=== PATIENT | female | born 1940 | race Caucasian/White ===

== ENCOUNTER 2017-02-03 15:45 | Inpatient (IN) | payer MEDICARE, OTHER ==
[~2017-02-03] VITALS: Ht 167.6 cm; Wt 69.5 kg
[~2017-02-03 15:45] MED LIST: AMLO10TA2 PO; ATEN25TA PO; BP MEDS; ESOM40CA PO
[2017-02-03] MEDS ORDERED: SODIUM CHLORIDE 0.9% 1,000ML IVBOLUS ONE ×2 (16:30→20:30)
[2017-02-03] MEDS ORDERED: SODIUM CHLORIDE FLUSH 10ML SYR IVF ONE (16:30)
[2017-02-03 16:33] LABS: ASPARTATE AMINO TRANSFERASE 17 U/L (15-37); BLOOD UREA NITROGEN 11 mg/dL (7-18)
[2017-02-03 16:40] LABS: IS PT STATUS REG ER OR PRE ER? YES
[2017-02-03] MEDS ORDERED: POTASSIUM CHLORIDE 20 MEQ TAB.ER.PRT PO ONE (17:30)
[2017-02-03] MEDS ORDERED: MAGNESIUM SULFATE 1 GM/2 ML IVPush ONE (17:30)
[2017-02-03] MEDS ORDERED: ONDANSETRON 2MG/ML, 2ML IVPush ONE (17:30)
[2017-02-03] MEDS ORDERED: POTASSIUM CHLORIDE 20 MEQ in SODIUM CHLORIDE 0.9% 250 ML IV ONE (17:30)
[2017-02-03] MEDS ORDERED: POTASSIUM CHLORIDE 20 MEQ TAB.ER.PRT ONE (17:40)
[2017-02-03] MEDS ORDERED: ONDANSETRON 2MG/ML, 2ML ONE (17:41)
[2017-02-03] MEDS ORDERED: FOLIC ACID 1 MG TABLET PO ONE (18:00)
[2017-02-03] MEDS ORDERED: MAGNESIUM SULFATE 1 GM in SODIUM CHLORIDE 0.9% 50 ML IV ONE (18:30)
[2017-02-03] MEDS ORDERED: NS + 20MEQ KCL 1,000 ML IV SCH (21:06)
[2017-02-03] MEDS: HEPARIN 5,000 UNITS/ML, 1ML SQ SCH (21:30)
[2017-02-03] MEDS ORDERED: ACETAMINOPHEN 325 MG TABLET PO PRN (21:30)
[2017-02-03] MEDS: NICOTINE 14MG/24 HR PATCH.TD24 TD SCH (21:30)
[2017-02-03] MEDS ORDERED: POLYETHYLENE GLYCOL 17 GM PACKET PO PRN (21:30)
[2017-02-03] MEDS ORDERED: BISACODYL 10 MG SUPP PR PRN (21:30)
[2017-02-03] MEDS ORDERED: ENALAPRILAT 1.25 MG/ML, 2ML IVPush PRN (21:30)
[2017-02-03 22:00] VITALS: BP 103/57
[2017-02-04] MEDS: OXYcodone IR 5MG TABLET PO PRN ×4 (00:45→16:09)
[2017-02-04 02:33] VITALS: BP 118/60
[2017-02-04 05:46] LABS: ASPARTATE AMINO TRANSFERASE 15 U/L (15-37); BLOOD UREA NITROGEN 9 mg/dL (7-18)
[2017-02-04] MEDS: SENNA/DOCUSATE TABLET PO SCH (07:57)
[2017-02-04 08:03] VITALS: BP 99/56
[2017-02-04] MEDS: HEPARIN 5,000 UNITS/ML, 1ML SQ SCH ×3 (08:09→22:23)
[2017-02-04] MEDS ORDERED: NS + 20MEQ KCL 1,000 ML IV SCH (09:00)
[2017-02-04] MEDS ORDERED: FOLIC ACID 1 MG TABLET PO SCH (09:00)
[2017-02-04] MEDS: NS + 20MEQ KCL 1,000 ML IV SCH ×2 (09:31→18:17)
[2017-02-04 14:34] VITALS: BP 110/67
[2017-02-04 18:39] VITALS: BP 141/77
[2017-02-04] MEDS: NICOTINE 14MG/24 HR PATCH.TD24 TD SCH (21:30)
[2017-02-05 02:12] VITALS: BP 127/66
[2017-02-05] MEDS ORDERED: FUROSEMIDE 20 MG/2 ML IV ONE (02:30)
[2017-02-05] MEDS: NS + 20MEQ KCL 1,000 ML IV SCH (03:59)
[2017-02-05] MEDS: HEPARIN 5,000 UNITS/ML, 1ML SQ SCH ×3 (05:24→20:12)
[2017-02-05 05:35] LABS: BLOOD UREA NITROGEN 13 mg/dL (7-18)
[2017-02-05 07:08] VITALS: BP 102/60
[2017-02-05] MEDS: SENNA/DOCUSATE TABLET PO SCH (08:38)
[2017-02-05] MEDS: OXYcodone IR 5MG TABLET PO PRN (10:20)
[2017-02-05] MEDS ORDERED: POLYETHYLENE GLYCOL 17 GM PACKET NG ONE (11:30)
[2017-02-05] MEDS: SODIUM CHLORIDE 0.9% 1,000 ML IV SCH (12:52)
[2017-02-05 13:54] VITALS: BP 112/53
[2017-02-05] MEDS: CALCIUM CARBONATE 500 MG TAB.CHEW PO SCH (17:26)
[2017-02-05 19:12] VITALS: BP 125/70
[2017-02-05] MEDS: NICOTINE 14MG/24 HR PATCH.TD24 TD SCH (20:12)
[2017-02-05] MEDS ORDERED: CALCIUM CARBONATE 500 MG TAB.CHEW PO SCH (21:00)
[2017-02-06 01:12] VITALS: BP 126/66
[2017-02-06] MEDS: OXYcodone IR 5MG TABLET PO PRN ×2 (05:21→09:13)
[2017-02-06] MEDS: HEPARIN 5,000 UNITS/ML, 1ML SQ SCH ×3 (05:21→21:32)
[2017-02-06 06:49] VITALS: BP 123/55
[2017-02-06] MEDS: SENNA/DOCUSATE TABLET PO SCH (09:03)
[2017-02-06] MEDS: CALCIUM CARBONATE 500 MG TAB.CHEW PO SCH ×2 (09:03→21:32)
[2017-02-06] MEDS: TAMSULOSIN 0.4 MG CAP.ER.24H PO SCH (09:03)
[2017-02-06] MEDS: ONDANSETRON 2MG/ML, 2ML IVPush PRN ×2 (10:55→21:32)
[2017-02-06] MEDS: SODIUM CHLORIDE 0.9% 1,000 ML IV SCH (11:30)
[2017-02-06 13:13] VITALS: BP 107/72
[2017-02-06 19:21] VITALS: BP 121/70
[2017-02-06] MEDS: NICOTINE 14MG/24 HR PATCH.TD24 TD SCH (21:35)
[2017-02-07 00:37] VITALS: BP 122/70
[2017-02-07] MEDS: SODIUM CHLORIDE 0.9% 1,000 ML IV SCH (03:45)
[2017-02-07] MEDS: HEPARIN 5,000 UNITS/ML, 1ML SQ SCH ×4 (05:30→21:30)
[2017-02-07] MEDS ORDERED: PROMETHAZINE 25 MG/ML, 1ML IM PRN (08:00)
[2017-02-07] MEDS: TAMSULOSIN 0.4 MG CAP.ER.24H PO SCH ×2 (09:00→21:30)
[2017-02-07] MEDS: SENNA/DOCUSATE TABLET PO SCH (09:00)
[2017-02-07] MEDS: CALCIUM CARBONATE 500 MG TAB.CHEW PO SCH ×2 (09:00→21:00)
[2017-02-07] MEDS: ONDANSETRON 2MG/ML, 2ML IVPush PRN ×2 (12:30→22:15)
[2017-02-07] MEDS ORDERED: LORazepam 0.5MG TABLET PO PRN (13:30)
[2017-02-07] MEDS ORDERED: LORazepam 2 MG/ML, 1ML ONE (20:48)
[2017-02-07] MEDS: NICOTINE 14MG/24 HR PATCH.TD24 TD SCH ×2 (21:15→22:15)
[2017-02-08 02:12] VITALS: BP 115/66
[2017-02-08] MEDS: HEPARIN 5,000 UNITS/ML, 1ML SQ SCH ×4 (05:30→20:44)
[2017-02-08 07:20] VITALS: BP 110/66
[2017-02-08] MEDS: OXYcodone IR 5MG TABLET PO PRN ×2 (07:57→20:44)
[2017-02-08] MEDS: SENNA/DOCUSATE TABLET PO SCH (09:00)
[2017-02-08] MEDS: CALCIUM CARBONATE 500 MG TAB.CHEW PO SCH ×2 (09:00→14:55)
[2017-02-08] MEDS: TAMSULOSIN 0.4 MG CAP.ER.24H PO SCH (09:00)
[2017-02-08] MEDS: SODIUM CHLORIDE 0.9% 1,000 ML IV SCH (11:30)
[2017-02-08 13:42] VITALS: BP 122/72
[2017-02-08 19:36] VITALS: BP 135/77
[2017-02-08] MEDS: NICOTINE 14MG/24 HR PATCH.TD24 TD SCH ×2 (20:44→21:30)
[2017-02-09 02:55] VITALS: BP 121/74
[2017-02-09 05:50] LABS: ASPARTATE AMINO TRANSFERASE 14 U/L (15-37); BLOOD UREA NITROGEN 10 mg/dL (7-18)
[2017-02-09] MEDS: HEPARIN 5,000 UNITS/ML, 1ML SQ SCH ×3 (05:59→23:21)
[2017-02-09] MEDS ORDERED: MAGNESIUM SULFATE PMX 2GM/50ML 50 ML IV ONE (07:30)
[2017-02-09] MEDS: SENNA/DOCUSATE TABLET PO SCH (07:58)
[2017-02-09] MEDS ORDERED: POTASSIUM CHLORIDE 20 MEQ TAB.ER.PRT PO ONE (08:00)
[2017-02-09 08:13] VITALS: BP 143/83
[2017-02-09] MEDS: OXYcodone IR 5MG TABLET PO PRN ×3 (08:37→20:22)
[2017-02-09] MEDS: CALCIUM CARBONATE 500 MG TAB.CHEW PO SCH ×2 (08:46→20:23)
[2017-02-09] MEDS: SODIUM CHLORIDE 0.9% 1,000 ML IV SCH (11:30)
[2017-02-09 15:10] VITALS: BP 127/78
[2017-02-09 19:44] VITALS: BP 126/76
[2017-02-09] MEDS: NICOTINE 14MG/24 HR PATCH.TD24 TD SCH (20:22)
[2017-02-10 01:17] VITALS: BP 130/78
[2017-02-10] MEDS: OXYcodone IR 5MG TABLET PO PRN ×2 (04:45→09:57)
[2017-02-10 05:59] LABS: BLOOD UREA NITROGEN 8 mg/dL (7-18)
[2017-02-10] MEDS: HEPARIN 5,000 UNITS/ML, 1ML SQ SCH ×2 (06:53→15:05)
[2017-02-10 07:12] VITALS: BP 123/69
[2017-02-10] MEDS: TAMSULOSIN 0.4 MG CAP.ER.24H PO SCH (08:40)
[2017-02-10] MEDS: SENNA/DOCUSATE TABLET PO SCH (08:40)
[2017-02-10] MEDS: CALCIUM CARBONATE 500 MG TAB.CHEW PO SCH (08:40)
[2017-02-10] MEDS ORDERED: TAMS-11 PO (11:14)
[2017-02-10] MEDS ORDERED: CALC200T24 PO (11:14)
[2017-02-10] MEDS ORDERED: OXYC5TAB3 PO (11:14)
[2017-02-10] MEDS ORDERED: HEPA5000 SQ (11:14)
[2017-02-10] MEDS ORDERED: POLY17PO5 PO (11:14)
[2017-02-10] MEDS ORDERED: LORA-445 PO (11:14)
[2017-02-10] MEDS: SODIUM CHLORIDE 0.9% 1,000 ML IV SCH (11:30)
[2017-02-10 13:22] VITALS: BP 107/66
[2017-02-10 16:05] LABS: DIFF TOTAL CELLS COUNTED 100 CELL DIFF
[2017-02-10 16:07] LABS: VERIFY COUNTS? YES
[2017-02-11 11:22] LABS: ASPARTATE AMINO TRANSFERASE 9 U/L (15-37); BLOOD UREA NITROGEN 9 mg/dL (7-18)
[2017-02-11 11:23] LABS: ASPARTATE AMINO TRANSFERASE 10 U/L (15-37); BLOOD UREA NITROGEN 9 mg/dL (7-18)
[2017-02-11 11:28] LABS: ASPARTATE AMINO TRANSFERASE 13 U/L (15-37); BLOOD UREA NITROGEN 7 mg/dL (7-18)
== END 2017-02-10 17:06 | DRG 542 ==
LOC: ED 20:03 → EDIP 20:04 → ED 20:25 → MERGE 20:25 → 4NOR 21:15
PROVIDERS: ADMIT Internal Medicine; ATTEND Internal Medicine
DX: M80.051A Age-related osteoporosis with current pathological fracture, right femur, initial encounter for fracture (principal); E43 Unspecified severe protein-calorie malnutrition; T84.030A Mechanical loosening of internal right hip prosthetic joint, initial encounter; K56.60 Unspecified intestinal obstruction; R17 Unspecified jaundice; S22.31XA Fracture of one rib, right side, initial encounter for closed fracture; S32.434A Nondisplaced fracture of anterior column [iliopubic] of right acetabulum, initial encounter for closed fracture; S32.591A Other specified fracture of right pubis, initial encounter for closed fracture; E86.1 Hypovolemia; F10.129 Alcohol abuse with intoxication, unspecified; R33.9 Retention of urine, unspecified; E83.42 Hypomagnesemia; E87.6 Hypokalemia; F17.210 Nicotine dependence, cigarettes, uncomplicated; I10 Essential (primary) hypertension; K21.9 Gastro-esophageal reflux disease without esophagitis; I95.9 Hypotension, unspecified; Z96.641 Presence of right artificial hip joint; Z90.49 Acquired absence of other specified parts of digestive tract; Z91.018 Allergy to other foods; Z90.710 Acquired absence of both cervix and uterus; Z68.24 Body mass index [BMI] 24.0-24.9, adult; W01.0XXA Fall on same level from slipping, tripping and stumbling without subsequent striking against object, initial encounter; Y83.8 Other surgical procedures as the cause of abnormal reaction of the patient, or of later complication, without mention of misadventure at the time of the procedure; Y93.89 Activity, other specified; Y92.89 Other specified places as the place of occurrence of the external cause; Y99.8 Other external cause status
CPT/HCPCS: 36415; 71010; 72192; 74000; 74250; 80048; 80053; 80307; 81001; 82040; 83735; 84484; 85025; 93005; 93306; 96361; 96365; 96367; 96375; J1644; J2405; J3475; J3480; J1940; J7030; J7050

== ENCOUNTER 2018-11-14 18:43 | Inpatient (IN) | payer MEDICARE, OTHER ==
[~2018-11-14] VITALS: Ht 167.6 cm; Wt 69.8 kg
[~2018-11-14 18:43] MED LIST changes: -AMLO10TA2 PO; +AMLO10TA8 PO; +CALC200T24 PO; +HEPA50002 SQ; +LORA-445 PO; +OXYC5TAB3 PO; +POLY17PO5 PO; +TAMS-11 PO
--- NOTE | 2018-11-14 19:00 | NUR ---
PLANT ELECTRICIAN: PT PLACED ON 3 L NASAL CANNULA.
[2018-11-14] MEDS ORDERED: ALBUTEROL/IPRATROPIUM 2.5MG/0.5MG, 3 ML ONE (19:33)
[2018-11-14] MEDS: ALBUTEROL/IPRATROPIUM 2.5MG/0.5MG, 3 ML NPPB SCH ×2 (19:42→19:44)
[2018-11-14 19:49] LABS: ALBUMIN 3.2 g/dL (3.4-5.0); ANION GAP 8 mmol/L (5-15); CALCIUM 8.4 mg/dL (8.5-10.1); CHLORIDE 106 mmol/L (98-107); CREATININE 0.67 mg/dL (0.55-1.02)
[2018-11-14 19:53] LABS: TROPONIN I 0.038 ng/mL (0.000-0.045)
[2018-11-14] MEDS ORDERED: ATEN25TA PO (20:01)
[2018-11-14 20:02] LABS: MD YES; MEAN CORPUSCULAR HEMOGLOBIN 30.8 pg (27.0-34.8); MEAN CORPUSCULAR HGB CONC 34.4 g/dL (32.4-35.8); MEAN CORPUSCULAR VOLUME 89.8 fL (80-100); MEAN PLATELET VOLUME 8.5 fL (7.4-10.4); PLATELET COUNT 206 x10^3/uL (130-400); RED BLOOD COUNT 4.63 x10^6/uL (3.82-5.3); RED CELL DISTRIBUTION WIDTH 13.4 % (9.6-15.2)
--- NOTE | 2018-11-14 20:03 | NUR ---
PT RECEIVED BREATHING TX. CONTINUES TO HAVE WHEEZES, LABORED BREATHING.NOTED TO HAVE COUGH. PT ABLE TO SPEAK FULL SENTENCES
[2018-11-14 20:06] LABS: <PLATELET ESTIMATE> ADEQUATE; <RBC MORPHOLOGY> NORMAL; BASOS#(MANUAL) 0.11 x10^3/uL (0-0.1); BASOS% (MANUAL) 1 % (0-1); LYMPH#(MANUAL) 1.24 x10^3/uL (1-3.4); LYMPHS% (MANUAL) 11 % (22-44); MONOS#(MANUAL) 1.24 x10^3/uL (0.3-2.7); MONOS% (MANUAL) 11 % (2-9); SEGS% (MANUAL) 77 % (42-75)
[2018-11-14 20:07] LABS: <PLT MORPHOLOGY> NORMAL PLT MORPH
[2018-11-14] MEDS ORDERED: AZITHROMYCIN 500 MG in SODIUM CHLORIDE 0.9% 250 ML IV ONE (21:30)
[2018-11-14] MEDS: HEPARIN 5,000 UNITS/ML, 1ML SQ SCH (22:00)
[2018-11-14] MEDS: NICOTINE 14MG/24 HR PATCH.TD24 TD SCH (22:00)
[2018-11-14] MEDS: methylPREDNISolone SOD SUCC 125 MG/2 ML IVPush SCH (22:00)
[2018-11-14] MEDS ORDERED: hydrALAzine 20 MG/ML, 1ML IVPush PRN (22:00)
[2018-11-14] MEDS ORDERED: POLYETHYLENE GLYCOL 17 GM PACKET PO PRN (22:00)
[2018-11-14] MEDS ORDERED: GUAIFENESIN/DM 200-20MG, 10ML UDC PO PRN (22:00)
[2018-11-14 23:01] LABS: TROPONIN I 0.057 ng/mL (0.000-0.045)
--- NOTE | 2018-11-14 23:13 | NUR ---
PT ASSISTED TO BS COMMODE. HOSPITAL BED ORDERED.
--- NOTE | 2018-11-15 00:02 | NUR ---
PT VSS AND UPDATED IN EMR. PT RESTING COMFORTABLY IN [facility] AT THIS TIME. CALL LIGHT IS WITHIN REACH.
[2018-11-15] MEDS ORDERED: NICOTINE 14MG/24 HR PATCH.TD24 ONE (00:09)
[2018-11-15] MEDS ORDERED: methylPREDNISolone SOD SUCC 125 MG/2 ML ONE ×2 (00:09→06:03)
[2018-11-15] MEDS ORDERED: HEPARIN 5,000 UNITS/ML, 1ML ONE ×2 (00:09→06:03)
--- NOTE | 2018-11-15 02:39 | NUR ---
RECEIVED REPORT FROM JAQUAN NEVAREZ TO ASSUME PT. CARE AT THIS TIME.
--- NOTE | 2018-11-15 03:59 | NUR ---
PT. RESTING ON GURNEY WITH NAND. EYES CLOSED. EVEN, NON-LABORED RESP VISIBLE. CONTINUOUS PULSE OX AND HEART MONITORS IN PLACE. CALL LIGHT IN REACH. ALL SAFETY MEASURES MAINTAINED.
[2018-11-15 05:53] LABS: ANION GAP 5 mmol/L (5-15); CALCIUM 8.1 mg/dL (8.5-10.1); CHLORIDE 109 mmol/L (98-107); CREATININE 0.65 mg/dL (0.55-1.02)
[2018-11-15 06:01] LABS: BASOPHILS % (AUTO) 0 % (0-1); EOSINOPHILS # (AUTO) 0.01 x10^3/uL (0-0.4); EOSINOPHILS % (AUTO) 0 % (1-7); LYMPHOCYTES # (AUTO) 0.46 x10^3/uL (1-3.4); LYMPHOCYTES % (AUTO) 5 % (22-44); MD NO; MEAN CORPUSCULAR HEMOGLOBIN 30.6 pg (27.0-34.8); MEAN CORPUSCULAR HGB CONC 33.9 g/dL (32.4-35.8); MEAN CORPUSCULAR VOLUME 90.4 fL (80-100); MEAN PLATELET VOLUME 8.2 fL (7.4-10.4); MONOCYTES # (AUTO) 0.05 x10^3/uL (0.2-0.8); MONOCYTES % (AUTO) 1 % (2-9); NEUTROPHILS # (AUTO) 8.08 x10^3/uL (1.8-6.8); NEUTROPHILS % (AUTO) 94 % (42-75); PLATELET COUNT 207 x10^3/uL (130-400); RED BLOOD COUNT 4.49 x10^6/uL (3.82-5.3); RED CELL DISTRIBUTION WIDTH 13.7 % (9.6-15.2)
[2018-11-15] MEDS ORDERED: ASPIRIN 325 MG TABLET ONE (06:03)
[2018-11-15] MEDS: methylPREDNISolone SOD SUCC 125 MG/2 ML IVPush SCH ×4 (06:14→21:19)
[2018-11-15] MEDS: HEPARIN 5,000 UNITS/ML, 1ML SQ SCH ×3 (06:14→22:00)
[2018-11-15] MEDS: ASPIRIN 325 MG TABLET PO SCH (06:15)
[2018-11-15] MEDS: ALBUTEROL/IPRATROPIUM 2.5MG/0.5MG, 3 ML NPPB SCH ×4 (07:15→18:10)
--- NOTE | 2018-11-15 07:19 | NUR ---
BS REPORT TO JAQUAN SERVIN TO ASSUME PT. CARE.
--- NOTE | 2018-11-15 07:59 | NUR ---
cardiac rhythm strip printed and placed on chart
[2018-11-15 08:59] LABS: TROPONIN I 0.018 ng/mL (0.000-0.045)
[2018-11-15] MEDS ORDERED: DOXYCYCLINE 100MG TABLET PO SCH (09:00)
[2018-11-15] MEDS ORDERED: AMLODIPINE 10 MG TAB PO SCH (09:00)
[2018-11-15 11:19] VITALS: BP 153/86
[2018-11-15] MEDS: ATENOLOL 25 MG TABLET PO SCH ×2 (11:26→15:17)
[2018-11-15 13:14] VITALS: BP 170/71
[2018-11-15] MEDS: METOPROLOL TARTRATE 25 MG TABLET PO SCH ×2 (15:00→18:00)
[2018-11-15] MEDS: AMLODIPINE 5 MG TABLET PO SCH (15:16)
[2018-11-15] MEDS: AZITHROMYCIN 500 MG in SODIUM CHLORIDE 0.9% 250 ML IV SCH ×2 (18:47→21:24)
[2018-11-15 21:17] VITALS: BP 126/77
[2018-11-15] MEDS: GUAIFENESIN ER 600 MG TABLET PO SCH (21:20)
[2018-11-15] MEDS: LISINOPRIL 20 MG TABLET PO SCH (21:20)
[2018-11-15] MEDS: ACETAMINOPHEN 325 MG TABLET PO PRN (21:35)
[2018-11-15] MEDS: NICOTINE 14MG/24 HR PATCH.TD24 TD SCH (22:00)
[2018-11-16 02:10] VITALS: BP 146/75
[2018-11-16] MEDS: methylPREDNISolone SOD SUCC 125 MG/2 ML IVPush SCH ×3 (02:29→17:51)
[2018-11-16] MEDS: ASPIRIN 325 MG TABLET PO SCH (06:27)
[2018-11-16] MEDS: HEPARIN 5,000 UNITS/ML, 1ML SQ SCH ×3 (06:28→22:10)
[2018-11-16] MEDS: METOPROLOL TARTRATE 25 MG TABLET PO SCH ×2 (06:28→17:52)
[2018-11-16] MEDS: ALBUTEROL/IPRATROPIUM 2.5MG/0.5MG, 3 ML NPPB SCH ×4 (07:40→20:41)
[2018-11-16 08:00] VITALS: BP 137/78
[2018-11-16] MEDS: AMLODIPINE 5 MG TABLET PO SCH (08:55)
[2018-11-16] MEDS: GUAIFENESIN ER 600 MG TABLET PO SCH ×2 (08:55→21:14)
[2018-11-16] MEDS: LISINOPRIL 20 MG TABLET PO SCH ×2 (08:55→21:14)
[2018-11-16 13:24] LABS: MICROSCOPIC INDICATED
[2018-11-16] MEDS: CEFTRIAXONE PMX 1GM/50ML 50 ML IV SCH (14:41)
[2018-11-16 14:42] VITALS: BP 106/66
[2018-11-16 19:18] VITALS: BP 131/73
[2018-11-16 21:13] VITALS: BP 106/64
[2018-11-16] MEDS: AZITHROMYCIN 500 MG in SODIUM CHLORIDE 0.9% 250 ML IV SCH (21:14)
[2018-11-16] MEDS: NICOTINE 14MG/24 HR PATCH.TD24 TD SCH (22:10)
[2018-11-17] MEDS: methylPREDNISolone SOD SUCC 125 MG/2 ML IVPush SCH ×5 (00:15→23:47)
[2018-11-17 01:22] VITALS: BP 100/59
[2018-11-17 06:06] VITALS: BP 122/66
[2018-11-17] MEDS: METOPROLOL TARTRATE 25 MG TABLET PO SCH ×2 (06:07→17:32)
[2018-11-17] MEDS: ASPIRIN 325 MG TABLET PO SCH (06:07)
[2018-11-17] MEDS: HEPARIN 5,000 UNITS/ML, 1ML SQ SCH ×3 (06:08→21:00)
[2018-11-17] MEDS: ALBUTEROL/IPRATROPIUM 2.5MG/0.5MG, 3 ML NPPB SCH ×5 (06:13→23:36)
[2018-11-17 07:32] VITALS: BP 124/71
[2018-11-17] MEDS: ATENOLOL 25 MG TABLET PO SCH (09:56)
[2018-11-17] MEDS: GUAIFENESIN ER 600 MG TABLET PO SCH ×2 (09:56→20:57)
[2018-11-17] MEDS: LISINOPRIL 20 MG TABLET PO SCH ×2 (09:56→20:57)
[2018-11-17] MEDS: AMLODIPINE 5 MG TABLET PO SCH (09:56)
[2018-11-17 12:27] LABS: O2 FLOW 45 L/min
[2018-11-17 12:46] VITALS: BP 128/76
[2018-11-17] MEDS: CEFTRIAXONE PMX 1GM/50ML 50 ML IV SCH (13:38)
[2018-11-17 19:43] VITALS: BP 134/72
[2018-11-17] MEDS: AZITHROMYCIN 500 MG in SODIUM CHLORIDE 0.9% 250 ML IV SCH (20:57)
[2018-11-17] MEDS: ACETAMINOPHEN 325 MG TABLET PO PRN (20:58)
[2018-11-17] MEDS: NICOTINE 14MG/24 HR PATCH.TD24 TD SCH (20:58)
[2018-11-18 02:23] VITALS: BP 103/60
[2018-11-18] MEDS: ALBUTEROL/IPRATROPIUM 2.5MG/0.5MG, 3 ML NPPB SCH ×7 (03:20→22:25)
[2018-11-18 05:27] VITALS: BP 131/77
[2018-11-18] MEDS: ASPIRIN 325 MG TABLET PO SCH (05:29)
[2018-11-18] MEDS: methylPREDNISolone SOD SUCC 125 MG/2 ML IVPush SCH ×3 (05:30→18:01)
[2018-11-18] MEDS: METOPROLOL TARTRATE 25 MG TABLET PO SCH ×2 (05:30→18:01)
[2018-11-18] MEDS: HEPARIN 5,000 UNITS/ML, 1ML SQ SCH ×3 (05:30→21:48)
[2018-11-18 07:21] VITALS: BP 148/87
[2018-11-18] MEDS: AMLODIPINE 5 MG TABLET PO SCH (08:49)
[2018-11-18] MEDS: LISINOPRIL 20 MG TABLET PO SCH ×2 (08:49→21:03)
[2018-11-18] MEDS: ATENOLOL 25 MG TABLET PO SCH (08:49)
[2018-11-18] MEDS: GUAIFENESIN ER 600 MG TABLET PO SCH ×2 (08:49→21:02)
[2018-11-18 13:52] VITALS: BP 146/82
[2018-11-18] MEDS: CEFTRIAXONE PMX 1GM/50ML 50 ML IV SCH (13:59)
[2018-11-18 19:45] VITALS: BP 142/57
[2018-11-18] MEDS ORDERED: ALBUTEROL SULFATE 2.5 MG/3 ML NPPB PRN (21:00)
[2018-11-18] MEDS: AZITHROMYCIN 500 MG in SODIUM CHLORIDE 0.9% 250 ML IV SCH (21:03)
[2018-11-18] MEDS: NICOTINE 14MG/24 HR PATCH.TD24 TD SCH (21:48)
[2018-11-19] MEDS: methylPREDNISolone SOD SUCC 125 MG/2 ML IVPush SCH ×4 (00:41→18:42)
[2018-11-19 00:44] VITALS: BP 124/70
[2018-11-19] MEDS: ALBUTEROL/IPRATROPIUM 2.5MG/0.5MG, 3 ML NPPB SCH ×6 (02:10→22:22)
[2018-11-19 05:13] LABS: BASOPHILS # (AUTO) 0.01 x10^3/uL (0-0.1); BASOPHILS % (AUTO) 0 % (0-1); EOSINOPHILS % (AUTO) 0 % (1-7); LYMPHOCYTES # (AUTO) 0.36 x10^3/uL (1-3.4); LYMPHOCYTES % (AUTO) 4 % (22-44); MD NO; MEAN CORPUSCULAR HEMOGLOBIN 30.9 pg (27.0-34.8); MEAN CORPUSCULAR HGB CONC 33.8 g/dL (32.4-35.8); MEAN CORPUSCULAR VOLUME 91.3 fL (80-100); MEAN PLATELET VOLUME 8.7 fL (7.4-10.4); MONOCYTES # (AUTO) 0.22 x10^3/uL (0.2-0.8); MONOCYTES % (AUTO) 2 % (2-9); NEUTROPHILS # (AUTO) 8.71 x10^3/uL (1.8-6.8); NEUTROPHILS % (AUTO) 94 % (42-75); PLATELET COUNT 226 x10^3/uL (130-400); RED BLOOD COUNT 4.26 x10^6/uL (3.82-5.3); RED CELL DISTRIBUTION WIDTH 13.9 % (9.6-15.2)
[2018-11-19] MEDS: HEPARIN 5,000 UNITS/ML, 1ML SQ SCH ×3 (05:19→21:18)
[2018-11-19 05:26] LABS: CHLORIDE 111 mmol/L (98-107)
[2018-11-19 05:32] LABS: ANION GAP 3 mmol/L (5-15); C-REACTIVE PROTEIN, QUANT 0.25 mg/dL (0.02-0.49); CALCIUM 8.3 mg/dL (8.5-10.1); CREATININE 0.73 mg/dL (0.55-1.02)
[2018-11-19 06:16] VITALS: BP 149/73
[2018-11-19] MEDS: METOPROLOL TARTRATE 25 MG TABLET PO SCH ×2 (06:17→18:42)
[2018-11-19] MEDS: ASPIRIN 325 MG TABLET PO SCH (06:17)
[2018-11-19 08:25] VITALS: BP 156/90
[2018-11-19] MEDS: AMLODIPINE 5 MG TABLET PO SCH (09:06)
[2018-11-19] MEDS: ATENOLOL 25 MG TABLET PO SCH (09:06)
[2018-11-19] MEDS: LISINOPRIL 20 MG TABLET PO SCH ×2 (09:06→21:17)
[2018-11-19] MEDS: GUAIFENESIN ER 600 MG TABLET PO SCH ×2 (09:06→21:17)
[2018-11-19] MEDS: CEFTRIAXONE PMX 1GM/50ML 50 ML IV SCH (13:31)
[2018-11-19 13:34] VITALS: BP 130/75
[2018-11-19] MEDS ORDERED: ONDANSETRON ODT 4 MG PO PRN (18:30)
[2018-11-19 19:21] VITALS: BP 150/81
[2018-11-19] MEDS: NICOTINE 14MG/24 HR PATCH.TD24 TD SCH (20:46)
[2018-11-19] MEDS: AZITHROMYCIN 500 MG in SODIUM CHLORIDE 0.9% 250 ML IV SCH (21:18)
[2018-11-20] MEDS: methylPREDNISolone SOD SUCC 125 MG/2 ML IVPush SCH ×4 (00:59→17:12)
[2018-11-20] MEDS: ALBUTEROL/IPRATROPIUM 2.5MG/0.5MG, 3 ML NPPB SCH ×5 (03:25→19:30)
[2018-11-20 03:30] VITALS: BP 120/71
[2018-11-20 06:33] LABS: BASOPHILS % (AUTO) 0 % (0-1); EOSINOPHILS % (AUTO) 0 % (1-7); LYMPHOCYTES % (AUTO) 4 % (22-44); MD NO; MEAN CORPUSCULAR HEMOGLOBIN 30.6 pg (27.0-34.8); MEAN CORPUSCULAR VOLUME 92.9 fL (80-100); MEAN PLATELET VOLUME 8.8 fL (7.4-10.4); MONOCYTES # (AUTO) 0.25 x10^3/uL (0.2-0.8); MONOCYTES % (AUTO) 3 % (2-9); NEUTROPHILS # (AUTO) 7.32 x10^3/uL (1.8-6.8); NEUTROPHILS % (AUTO) 93 % (42-75); PLATELET COUNT 209 x10^3/uL (130-400); RED CELL DISTRIBUTION WIDTH 13.6 % (9.6-15.2)
[2018-11-20 06:46] LABS: CHLORIDE 109 mmol/L (98-107)
[2018-11-20] MEDS: METOPROLOL TARTRATE 25 MG TABLET PO SCH ×2 (06:52→17:12)
[2018-11-20] MEDS: ASPIRIN 325 MG TABLET PO SCH (06:52)
[2018-11-20] MEDS: HEPARIN 5,000 UNITS/ML, 1ML SQ SCH ×2 (06:52→14:40)
[2018-11-20 06:54] VITALS: BP 145/63
[2018-11-20 07:05] LABS: CREATININE 0.63 mg/dL (0.55-1.02)
[2018-11-20 07:14] LABS: ANION GAP 3 mmol/L (5-15)
[2018-11-20] MEDS: AMLODIPINE 5 MG TABLET PO SCH (08:02)
[2018-11-20] MEDS: LISINOPRIL 20 MG TABLET PO SCH ×2 (08:02→20:22)
[2018-11-20] MEDS: ATENOLOL 25 MG TABLET PO SCH (08:02)
[2018-11-20] MEDS: GUAIFENESIN ER 600 MG TABLET PO SCH ×2 (08:02→20:22)
[2018-11-20 12:31] VITALS: BP 126/59
[2018-11-20] MEDS: CEFTRIAXONE PMX 1GM/50ML 50 ML IV SCH (14:40)
[2018-11-20] MEDS ORDERED: FUROSEMIDE 20 MG/2 ML IV ONE (16:00)
[2018-11-20 19:52] VITALS: BP 134/66
[2018-11-20] MEDS: NICOTINE 14MG/24 HR PATCH.TD24 TD SCH (22:00)
[2018-11-21] MEDS: methylPREDNISolone SOD SUCC 125 MG/2 ML IVPush SCH ×4 (00:32→17:19)
[2018-11-21] MEDS: HEPARIN 5,000 UNITS/ML, 1ML SQ SCH ×4 (00:32→23:46)
[2018-11-21 00:55] VITALS: BP 141/68
[2018-11-21 05:39] VITALS: BP 159/81
[2018-11-21] MEDS: METOPROLOL TARTRATE 25 MG TABLET PO SCH ×2 (05:41→17:19)
[2018-11-21] MEDS: ASPIRIN 325 MG TABLET PO SCH (05:41)
[2018-11-21 06:04] LABS: BASOPHILS # (AUTO) 0.01 x10^3/uL (0-0.1); BASOPHILS % (AUTO) 0 % (0-1); EOSINOPHILS % (AUTO) 0 % (1-7); LYMPHOCYTES # (AUTO) 0.36 x10^3/uL (1-3.4); LYMPHOCYTES % (AUTO) 4 % (22-44); MD NO; MEAN CORPUSCULAR HEMOGLOBIN 30.7 pg (27.0-34.8); MEAN CORPUSCULAR HGB CONC 33.2 g/dL (32.4-35.8); MEAN CORPUSCULAR VOLUME 92.4 fL (80-100); MEAN PLATELET VOLUME 8.4 fL (7.4-10.4); MONOCYTES # (AUTO) 0.28 x10^3/uL (0.2-0.8); MONOCYTES % (AUTO) 3 % (2-9); NEUTROPHILS # (AUTO) 8.56 x10^3/uL (1.8-6.8); NEUTROPHILS % (AUTO) 93 % (42-75); PLATELET COUNT 233 x10^3/uL (130-400); RED CELL DISTRIBUTION WIDTH 13.9 % (9.6-15.2)
[2018-11-21 06:16] LABS: CALCIUM 8.2 mg/dL (8.5-10.1); CREATININE 0.68 mg/dL (0.55-1.02)
[2018-11-21 06:29] LABS: ANION GAP 3 mmol/L (5-15); CHLORIDE 105 mmol/L (98-107)
[2018-11-21] MEDS: ALBUTEROL/IPRATROPIUM 2.5MG/0.5MG, 3 ML NPPB SCH ×4 (07:00→19:18)
[2018-11-21 07:45] VITALS: BP 152/66
[2018-11-21] MEDS: ATENOLOL 25 MG TABLET PO SCH (08:46)
[2018-11-21] MEDS: LISINOPRIL 20 MG TABLET PO SCH ×2 (08:46→21:05)
[2018-11-21] MEDS: AMLODIPINE 5 MG TABLET PO SCH (08:46)
[2018-11-21] MEDS: GUAIFENESIN ER 600 MG TABLET PO SCH ×2 (08:46→21:04)
[2018-11-21 12:08] LABS: FREE T4 (FREE THYROXINE) 0.58 ng/dL (0.76-1.46); TROPONIN I < 0.015 ng/mL (0.000-0.045)
[2018-11-21 13:48] VITALS: BP 124/66
[2018-11-21] MEDS: CEFTRIAXONE PMX 1GM/50ML 50 ML IV SCH (15:20)
[2018-11-21 18:39] VITALS: BP 146/77
[2018-11-21] MEDS: NICOTINE 14MG/24 HR PATCH.TD24 TD SCH (21:04)
[2018-11-22] MEDS: methylPREDNISolone SOD SUCC 125 MG/2 ML IVPush SCH ×4 (00:27→17:05)
[2018-11-22 01:16] VITALS: BP 150/81
[2018-11-22] MEDS: METOPROLOL TARTRATE 25 MG TABLET PO SCH ×2 (06:16→17:04)
[2018-11-22] MEDS: ASPIRIN 325 MG TABLET PO SCH (06:16)
[2018-11-22 06:19] LABS: BASOPHILS # (AUTO) 0.01 x10^3/uL (0-0.1); BASOPHILS % (AUTO) 0 % (0-1); EOSINOPHILS % (AUTO) 0 % (1-7); LYMPHOCYTES # (AUTO) 0.35 x10^3/uL (1-3.4); LYMPHOCYTES % (AUTO) 3 % (22-44); MD NO; MEAN CORPUSCULAR HEMOGLOBIN 30.5 pg (27.0-34.8); MEAN CORPUSCULAR HGB CONC 33.5 g/dL (32.4-35.8); MEAN CORPUSCULAR VOLUME 91.1 fL (80-100); MEAN PLATELET VOLUME 9.2 fL (7.4-10.4); MONOCYTES # (AUTO) 0.48 x10^3/uL (0.2-0.8); MONOCYTES % (AUTO) 5 % (2-9); NEUTROPHILS # (AUTO) 9.29 x10^3/uL (1.8-6.8); NEUTROPHILS % (AUTO) 92 % (42-75); PLATELET COUNT 235 x10^3/uL (130-400); RED BLOOD COUNT 4.33 x10^6/uL (3.82-5.3); RED CELL DISTRIBUTION WIDTH 13.5 % (9.6-15.2)
[2018-11-22 06:30] LABS: CALCIUM 7.9 mg/dL (8.5-10.1); CHLORIDE 104 mmol/L (98-107)
[2018-11-22 06:42] LABS: ANION GAP 3 mmol/L (5-15)
[2018-11-22] MEDS: ALBUTEROL/IPRATROPIUM 2.5MG/0.5MG, 3 ML NPPB SCH ×4 (07:45→20:00)
[2018-11-22] MEDS: HEPARIN 5,000 UNITS/ML, 1ML SQ SCH ×2 (08:00→15:25)
[2018-11-22 08:20] VITALS: BP 183/80
[2018-11-22] MEDS: GUAIFENESIN ER 600 MG TABLET PO SCH ×2 (08:29→20:41)
[2018-11-22] MEDS: AMLODIPINE 5 MG TABLET PO SCH (08:30)
[2018-11-22] MEDS: LISINOPRIL 20 MG TABLET PO SCH ×2 (08:30→20:41)
[2018-11-22] MEDS: ATENOLOL 25 MG TABLET PO SCH (08:30)
[2018-11-22 10:31] LABS: TROPONIN I < 0.015 ng/mL (0.000-0.045)
[2018-11-22] MEDS: CEFTRIAXONE PMX 1GM/50ML 50 ML IV SCH (13:47)
[2018-11-22 14:45] VITALS: BP 143/80
[2018-11-22 20:24] VITALS: BP 134/71
[2018-11-22] MEDS: NICOTINE 14MG/24 HR PATCH.TD24 TD SCH (20:41)
[2018-11-23] MEDS: methylPREDNISolone SOD SUCC 125 MG/2 ML IVPush SCH ×3 (00:50→12:22)
[2018-11-23 02:07] VITALS: BP 154/73
[2018-11-23] MEDS: ASPIRIN 325 MG TABLET PO SCH (06:22)
[2018-11-23] MEDS: METOPROLOL TARTRATE 25 MG TABLET PO SCH (06:23)
[2018-11-23 06:26] LABS: BASOPHILS # (AUTO) 0.02 x10^3/uL (0-0.1); BASOPHILS % (AUTO) 0 % (0-1); EOSINOPHILS % (AUTO) 0 % (1-7); LYMPHOCYTES # (AUTO) 0.29 x10^3/uL (1-3.4); LYMPHOCYTES % (AUTO) 3 % (22-44); MD NO; MEAN CORPUSCULAR HEMOGLOBIN 30.6 pg (27.0-34.8); MEAN CORPUSCULAR HGB CONC 33.6 g/dL (32.4-35.8); MEAN PLATELET VOLUME 8.4 fL (7.4-10.4); MONOCYTES # (AUTO) 0.22 x10^3/uL (0.2-0.8); MONOCYTES % (AUTO) 2 % (2-9); NEUTROPHILS # (AUTO) 8.71 x10^3/uL (1.8-6.8); NEUTROPHILS % (AUTO) 94 % (42-75); PLATELET COUNT 236 x10^3/uL (130-400); RED BLOOD COUNT 4.38 x10^6/uL (3.82-5.3); RED CELL DISTRIBUTION WIDTH 13.4 % (9.6-15.2)
[2018-11-23 06:38] LABS: CALCIUM 7.9 mg/dL (8.5-10.1)
[2018-11-23 06:44] LABS: CREATININE 0.62 mg/dL (0.55-1.02)
[2018-11-23] MEDS: ALBUTEROL/IPRATROPIUM 2.5MG/0.5MG, 3 ML NPPB SCH ×3 (06:53→14:18)
[2018-11-23 07:03] LABS: ANION GAP 6 mmol/L (5-15); CHLORIDE 102 mmol/L (98-107)
[2018-11-23 07:52] VITALS: BP 166/88
[2018-11-23] MEDS: HEPARIN 5,000 UNITS/ML, 1ML SQ SCH ×2 (09:18)
[2018-11-23] MEDS: AMLODIPINE 5 MG TABLET PO SCH (09:18)
[2018-11-23] MEDS: GUAIFENESIN ER 600 MG TABLET PO SCH (09:19)
[2018-11-23] MEDS: LISINOPRIL 20 MG TABLET PO SCH (09:19)
[2018-11-23] MEDS: ATENOLOL 25 MG TABLET PO SCH (09:19)
[2018-11-23] MEDS ORDERED: POLY17PO5 PO (13:24)
[2018-11-23] MEDS ORDERED: ONDA4TAB13 PO (13:24)
[2018-11-23] MEDS ORDERED: LISI-170 PO (13:24)
[2018-11-23] MEDS ORDERED: ALBU2.5V NPPB (13:24)
[2018-11-23] MEDS ORDERED: HEPA50002 SQ (13:24)
[2018-11-23] MEDS ORDERED: ALPR0.254 PO (13:24)
[2018-11-23] MEDS ORDERED: GUAI5SYR PO (13:24)
[2018-11-23] MEDS ORDERED: ASPI325T17 PO (13:24)
[2018-11-23] MEDS ORDERED: GUAI600T31 PO (13:24)
[2018-11-23] MEDS ORDERED: METH125V16 IVPush (13:24)
[2018-11-23] MEDS ORDERED: LEVO25TA2 PO (13:24)
[2018-11-23] MEDS ORDERED: METO25TA35 PO (13:24)
[2018-11-23] MEDS ORDERED: IPRA3AMP30 NPPB (13:24)
[2018-11-23] MEDS ORDERED: NICO-486 TD (13:24)
[2018-11-23] MEDS ORDERED: ACET325T14 PO (13:24)
[2018-11-23 13:35] VITALS: BP 160/84
[2018-11-23] MEDS: CEFTRIAXONE PMX 1GM/50ML 50 ML IV SCH (14:09)
== END 2018-11-23 16:03 | DRG 189 ==
LOC: ED 20:47 → EDIP 21:16 → 4EST 11-15 12:51
PROVIDERS: ADMIT Family Medicine; ATTEND Family Medicine
PROC: 5A09357 Assistance with Respiratory Ventilation, Less than 24 Consecutive Hours, Continuous Positive Airway Pressure (ICD-10-PCS; 2018-11-21)
PROC: 5A09357 Assistance with Respiratory Ventilation, Less than 24 Consecutive Hours, Continuous Positive Airway Pressure (ICD-10-PCS; principal; 2018-11-22)
PROC: 5A09357 Assistance with Respiratory Ventilation, Less than 24 Consecutive Hours, Continuous Positive Airway Pressure (ICD-10-PCS; 2018-11-23)
DX: J96.21 Acute and chronic respiratory failure with hypoxia (principal); J44.1 Chronic obstructive pulmonary disease with (acute) exacerbation; I24.8 Other forms of acute ischemic heart disease; E87.2 Acidosis; F41.9 Anxiety disorder, unspecified; E03.9 Hypothyroidism, unspecified; I11.9 Hypertensive heart disease without heart failure; F17.210 Nicotine dependence, cigarettes, uncomplicated; Z96.641 Presence of right artificial hip joint; Z90.710 Acquired absence of both cervix and uterus; Z91.018 Allergy to other foods; Z79.82 Long term (current) use of aspirin; Z79.899 Other long term (current) drug therapy
CPT/HCPCS: 0399T; 36415; 36600; 71045; 80048; 81001; 82040; 82803; 82962; 83880; 84439; 84443; 84484; 85025; 86140; 87040; 93005; 93306; 93308; 94640; 99285; G0378; J0456; J0696; J1644; J7620; Q0162; J1940; J2930; J7050

== ENCOUNTER 2019-03-02 10:36 | Emergency (ER) | payer MEDICARE, OTHER ==
[~2019-03-02] VITALS: Ht 162.6 cm; Wt 71.6 kg
[~2019-03-02 10:36] MED LIST changes: +ACET325T14 PO; +ALBU2.5V NPPB; +ALPR0.254 PO; +ASPI325T17 PO; +GUAI5SYR PO; +GUAI600T31 PO; +IPRA3AMP30 NPPB; +LEVO25TA2 PO; +LISI-170 PO; +METH125V16 IVPush; +METO25TA35 PO; +NICO-486 TD; +ONDA4TAB13 PO
--- NOTE | 2019-03-02 10:58 | NUR ---
PT HAS COMPLAINTS OF MID BACK PAIN. PT STATES SHE "HAS BEEN IN THREE TIMES THIS WEEKS" PT STATES SHE "FELL OF A HORSE 20 YEARS AGO". VS STABLE. PRESENT
[2019-03-02] MEDS ORDERED: KETOROLAC 30 MG/1 ML ONE (11:39)
[2019-03-02] MEDS ORDERED: KETOROLAC 30 MG/1 ML IM ONE (12:00)
--- NOTE | 2019-03-02 12:11 | NUR ---
AT DOOR REQUESTING D/C PAPERWORK, EXPLAINED MD HAS YET TO COMPLETE. LOOKED AT WATCH AND SAID HE HAD TO GO, ROLLED EYES AND BACK TO ROOM. OFFERED APOLOGY, SPOUSE APPEARS VERY ANGRY AT THIS RN.
--- NOTE | 2019-03-02 12:36 | NUR ---
given dc instrucftion pt up in w/c dc home
[2019-03-02 12:37] VITALS: BP 148/70
[2019-03-16] MEDS ORDERED: METH750T87 PO (15:59)
[2019-03-16] MEDS ORDERED: HYDR-3237 PO (15:59)
== END 2019-03-02 12:39 | disposition home or self-care (01) ==
LOC: ED 11:50
DX: M48.55XA Collapsed vertebra, not elsewhere classified, thoracolumbar region, initial encounter for fracture (principal); J44.9 Chronic obstructive pulmonary disease, unspecified; I10 Essential (primary) hypertension; Z91.018 Allergy to other foods
CPT/HCPCS: 96372; 99283; J1885

== ENCOUNTER 2019-03-14 17:36 | Emergency (ER) | payer MEDICARE, OTHER ==
[~2019-03-14] VITALS: Ht 167.6 cm; Wt 68.0 kg
--- NOTE | 2019-03-14 18:00 | NUR ---
pt arrives to ed with c/o lower back pain and severe distress. pt reports the back pain is unbareable and she cannot moved. pts vss and nadn. pt connected to monitors and call light in reach. pt takes narcotics reguarly for pain control. pt requesting valium at this time prior to provider seeing her.
[2019-03-14] MEDS ORDERED: KETOROLAC 30 MG/1 ML IM ONE (18:30)
[2019-03-14] MEDS ORDERED: DIAZEPAM 5 MG TABLET PO ONE (18:30)
[2019-03-14] MEDS ORDERED: KETOROLAC 30 MG/1 ML ONE (18:33)
[2019-03-14] MEDS ORDERED: DIAZEPAM 5 MG TABLET ONE (18:33)
[2019-03-14 18:51] LABS: BASOPHILS # (AUTO) 0.07 x10^3/uL (0-0.1); BASOPHILS % (AUTO) 1 % (0-1); EOSINOPHILS # (AUTO) 0.27 x10^3/uL (0-0.4); EOSINOPHILS % (AUTO) 3 % (1-7); LYMPHOCYTES # (AUTO) 1.22 x10^3/uL (1-3.4); LYMPHOCYTES % (AUTO) 15 % (22-44); MD NO; MEAN CORPUSCULAR HGB CONC 32.6 g/dL (32.4-35.8); MEAN CORPUSCULAR VOLUME 91.9 fL (80-100); MONOCYTES # (AUTO) 0.69 x10^3/uL (0.2-0.8); MONOCYTES % (AUTO) 8 % (2-9); NEUTROPHILS # (AUTO) 5.95 x10^3/uL (1.8-6.8); NEUTROPHILS % (AUTO) 73 % (42-75); PLATELET COUNT 347 x10^3/uL (130-400); RED BLOOD COUNT 3.78 x10^6/uL (3.82-5.3); RED CELL DISTRIBUTION WIDTH 14.2 % (9.6-15.2)
--- NOTE | 2019-03-14 18:55 | NUR ---
PATIENT REFUSING TO COOPERATE WITH ORTHOSTATIC VITALS STATING "I AM IN TOO MUCH PAIN TO DEAL WITH THIS".
[2019-03-14 19:03] LABS: ANION GAP 9 mmol/L (5-15); CALCIUM 8.2 mg/dL (8.5-10.1); CHLORIDE 102 mmol/L (98-107)
[2019-03-14 19:04] LABS: ALANINE AMINOTRANSFERASE 12 U/L (12-78); ALBUMIN 2.8 g/dL (3.4-5.0)
[2019-03-14 19:06] LABS: ALKALINE PHOSPHATASE 98 U/L (45-117); BILIRUBIN,TOTAL 0.1 mg/dL (0.2-1.0); TOTAL PROTEIN 6.1 g/dL (6.4-8.2)
--- NOTE | 2019-03-14 19:21 | NUR ---
Plan of care discussed with patient and her , verbalize understanding. Labs pending, waiting for CT scan.
[2019-03-14 19:42] LABS: TROPONIN I < 0.015 ng/mL (0.000-0.045)
--- NOTE | 2019-03-14 20:45 | NUR ---
pt at cta at this time.
[2019-03-14 20:46] VITALS: BP 121/82
[2019-03-14] MEDS ORDERED: OMNIPAQUE 350 MG/ML, 100ML BOTTLE ONE (21:03)
[2019-03-14] MEDS ORDERED: HYDROcodone/APAP 5/325 TABLET ONE (22:13)
--- NOTE | 2019-03-14 22:17 | NUR ---
Patient/Caregiver given discharge instructions and they have confirmed that they understand the instructions. Patient ambulatory with steady gait.
[2019-03-14] MEDS ORDERED: HYDROcodone/APAP 5/325 TABLET PO ONE (22:30)
[2019-03-16] MEDS ORDERED: METH750T87 PO (15:59)
[2019-03-16] MEDS ORDERED: HYDR-3237 PO (15:59)
== END 2019-03-14 22:18 | disposition home or self-care (01) ==
LOC: ED 18:00
DX: S29.012A Strain of muscle and tendon of back wall of thorax, initial encounter (principal); I70.90 Unspecified atherosclerosis; M51.34 Other intervertebral disc degeneration, thoracic region; X58.XXXA Exposure to other specified factors, initial encounter; Y93.89 Activity, other specified; Y92.89 Other specified places as the place of occurrence of the external cause; Y99.8 Other external cause status
CPT/HCPCS: 36415; 71275; 74175; 80053; 83690; 84484; 85025; 93005; 96372; 99284; J1885; Q9967

== ENCOUNTER 2019-03-16 14:03 | Inpatient (IN) | payer MEDICARE, OTHER ==
[~2019-03-16] VITALS: Ht 167.6 cm; Wt 76.0 kg
[2019-03-23 16:30] VITALS: BP 135/71
== END 2019-03-23 16:56 | disposition left against medical advice (07) | DRG 542 ==
LOC: ED 15:44 → EDIP 15:49 → 5SO 17:04
PROVIDERS: ADMIT Hospitalist; ATTEND Hospitalist
PROC: 0D9670Z Drainage of Stomach with Drainage Device, Via Natural or Artificial Opening (ICD-10-PCS; principal; 2019-03-20)
DX: M48.55XA Collapsed vertebra, not elsewhere classified, thoracolumbar region, initial encounter for fracture (principal); J96.21 Acute and chronic respiratory failure with hypoxia; I26.99 Other pulmonary embolism without acute cor pulmonale; J18.1 Lobar pneumonia, unspecified organism; E44.0 Moderate protein-calorie malnutrition; J44.0 Chronic obstructive pulmonary disease with (acute) lower respiratory infection; K56.52 Intestinal adhesions [bands] with complete obstruction; I10 Essential (primary) hypertension; R62.7 Adult failure to thrive; Z53.21 Procedure and treatment not carried out due to patient leaving prior to being seen by health care provider; F17.210 Nicotine dependence, cigarettes, uncomplicated; D63.8 Anemia in other chronic diseases classified elsewhere; E55.9 Vitamin D deficiency, unspecified; E66.3 Overweight; Z68.27 Body mass index [BMI] 27.0-27.9, adult; Z86.711 Personal history of pulmonary embolism; Z99.81 Dependence on supplemental oxygen; Z91.018 Allergy to other foods; Z90.49 Acquired absence of other specified parts of digestive tract
CPT/HCPCS: 36415; 71045; 71275; 72131; 72146; 74018; 74021; 74175; 74177; 76000; 76705; 80048; 80053; 80061; 81001; 82040; 82306; 82607; 83036; 83605; 83690; 83735; 84439; 84443; 84484; 85025; 85520; 85610; 93005; 93306; 93970; 96372; 96374; 96375; 99156; 99157; 99284; G0378; J0696; J1644; J1650; J1885; J2250; J2405; J3010; Q9967; 92523-GN; C9113; J1940; J2270; J2310; J7030; J7512

== ENCOUNTER 2019-11-13 11:38 | Emergency (ER) | payer MEDICARE, OTHER ==
[~2019-11-13] VITALS: Ht 167.6 cm; Wt 70.0 kg
[~2019-11-13 11:38] MED LIST changes: +APIX5TAB PO; +DOXY100T PO; +ERGO500017 PO; +HYDR-3237 PO; +METH750T87 PO
[2019-11-13] MEDS ORDERED: SODIUM CHLORIDE 0.9% 1,000 ML IV ONE (12:06)
--- NOTE | 2019-11-13 12:06 | NUR ---
PT BIBA FOR C/O EPIGASTRIC PAIN X 7 DAYS, SOB X 2 DAYS. PT DENIES N/V/D. DENIES TARRY/BLOODY STOOL. +ETOH DAILY, +TOBACCO DAILY. PT DENIES COUGH. PT ATTACHED TO ALL MONITORS, RAISA NIETO AT BEDSIDE FOR INITIAL ASSESSMENT.
[2019-11-13] MEDS ORDERED: ONDANSETRON 2MG/ML, 2ML ONE (12:19)
[2019-11-13] MEDS ORDERED: MORPHINE SULFATE 4 MG/ML, 1ML ONE (12:19)
[2019-11-13 12:26] LABS: BASOPHILS # (AUTO) 0.02 x10^3/uL (0-0.1); BASOPHILS % (AUTO) 1 % (0-1); EOSINOPHILS # (AUTO) 0.08 x10^3/uL (0-0.4); EOSINOPHILS % (AUTO) 2 % (1-7); LYMPHOCYTES # (AUTO) 0.72 x10^3/uL (1-3.4); LYMPHOCYTES % (AUTO) 18 % (22-44); MD NO; MEAN CORPUSCULAR HEMOGLOBIN 29.8 pg (27.0-34.8); MEAN CORPUSCULAR VOLUME 90.3 fL (80-100); MEAN PLATELET VOLUME 7.8 fL (7.4-10.4); MONOCYTES # (AUTO) 0.72 x10^3/uL (0.2-0.8); MONOCYTES % (AUTO) 18 % (2-9); NEUTROPHILS # (AUTO) 2.54 x10^3/uL (1.8-6.8); NEUTROPHILS % (AUTO) 62 % (42-75); PLATELET COUNT 183 x10^3/uL (130-400); RED BLOOD COUNT 4.48 x10^6/uL (3.82-5.3); RED CELL DISTRIBUTION WIDTH 13.8 % (9.6-15.2)
[2019-11-13] MEDS ORDERED: ONDANSETRON 2MG/ML, 2ML IVPush ONE (12:30)
[2019-11-13] MEDS ORDERED: MORPHINE SULFATE 4 MG/ML, 1ML IVPush PRN (12:30)
[2019-11-13] MEDS ORDERED: SODIUM CHLORIDE FLUSH 10ML SYR IVF ONE (12:30)
[2019-11-13 12:37] LABS: ALANINE AMINOTRANSFERASE 18 U/L (12-78); ALBUMIN 3.4 g/dL (3.4-5.0); ANION GAP 6 mmol/L (5-15); CALCIUM 8.2 mg/dL (8.5-10.1); CHLORIDE 102 mmol/L (98-107); CREATININE 0.69 mg/dL (0.55-1.02)
[2019-11-13 12:39] LABS: ALKALINE PHOSPHATASE 79 U/L (45-117); BILIRUBIN,TOTAL 0.3 mg/dL (0.2-1.0)
--- NOTE | 2019-11-13 13:11 | NUR ---
MD Bowles notified pt has expiratory wheezes, hx copd. ordered breathing tx. RT paged to provide.
[2019-11-13] MEDS ORDERED: ALBUTEROL SULFATE 2.5 MG/3 ML ONE (13:21)
[2019-11-13] MEDS ORDERED: MAALOX/HYOSCYAMINE/LIDOCAINE 45 ML BTL ONE ×2 (13:24→13:46)
--- NOTE | 2019-11-13 13:26 | NUR ---
US IN PROGRESS, PT TOLERATING WELL. PT DENIES PAIN. PT TO HAVE GI COCKTAIL AND BREATHING TX AFTER COMPLETION.
[2019-11-13] MEDS ORDERED: ALBUTEROL SULFATE 2.5 MG/3 ML NPPB ONE (13:30)
[2019-11-13] MEDS ORDERED: MAALOX/HYOSCYAMINE/LIDOCAINE 45 ML BTL PO ONE (13:30)
--- NOTE | 2019-11-13 13:45 | NUR ---
REPORT GIVEN TO JAQUAN MASON.
[2019-11-13 13:55] VITALS: BP 121/55
--- NOTE | 2019-11-13 14:00 | NUR ---
PT MEDICATED PER EMAR. 1L NS STARTED. VS STABLE. PT IS RESTING ON GURNEY W/ CALL LIGHT IN REACH AND FAMILY AT BEDSIDE.
== END 2019-11-13 14:41 | disposition home or self-care (01) ==
LOC: ED 14:35
DX: K29.70 Gastritis, unspecified, without bleeding (principal); R06.02 Shortness of breath
CPT/HCPCS: 36415; 76700; 80053; 83690; 85025; 93005; 94640; 96361; 96374; 96375; 99285; J2270; J2405; J7030; J7613

== ENCOUNTER 2019-11-19 15:13 | Inpatient (IN) | payer MEDICARE, OTHER ==
[~2019-11-19] VITALS: Ht 167.6 cm; Wt 70.2 kg
[2019-11-19] MEDS ORDERED: ALBUTEROL/IPRATROPIUM 2.5MG/0.5MG, 3 ML ONE (15:47)
[2019-11-19] MEDS: ALBUTEROL/IPRATROPIUM 2.5MG/0.5MG, 3 ML NPPB SCH (15:52)
[2019-11-19] MEDS ORDERED: SODIUM CHLORIDE FLUSH 10ML SYR IVF ONE (16:00)
[2019-11-19 16:23] LABS: ALANINE AMINOTRANSFERASE 19 U/L (12-78); ALBUMIN 3.1 g/dL (3.4-5.0); ANION GAP 3 mmol/L (5-15); CALCIUM 8.5 mg/dL (8.5-10.1); CHLORIDE 104 mmol/L (98-107); CREATININE 0.74 mg/dL (0.55-1.02)
[2019-11-19 16:27] LABS: ALKALINE PHOSPHATASE 85 U/L (45-117); BILIRUBIN,TOTAL 0.4 mg/dL (0.2-1.0); TOTAL PROTEIN 7.1 g/dL (6.4-8.2); TROPONIN I < 0.015 ng/mL (0.000-0.045)
[2019-11-19 16:29] LABS: BASOPHILS # (AUTO) 0.02 x10^3/uL (0-0.1); BASOPHILS % (AUTO) 0 % (0-1); EOSINOPHILS # (AUTO) 0.04 x10^3/uL (0-0.4); EOSINOPHILS % (AUTO) 0 % (1-7); LYMPHOCYTES # (AUTO) 0.99 x10^3/uL (1-3.4); LYMPHOCYTES % (AUTO) 10 % (22-44); MD NO; MEAN CORPUSCULAR HEMOGLOBIN 29.5 pg (27.0-34.8); MEAN CORPUSCULAR HGB CONC 32.3 g/dL (32.4-35.8); MEAN CORPUSCULAR VOLUME 91.4 fL (80-100); MEAN PLATELET VOLUME 7.5 fL (7.4-10.4); MONOCYTES # (AUTO) 0.78 x10^3/uL (0.2-0.8); MONOCYTES % (AUTO) 8 % (2-9); NEUTROPHILS # (AUTO) 8.53 x10^3/uL (1.8-6.8); NEUTROPHILS % (AUTO) 82 % (42-75); PLATELET COUNT 303 x10^3/uL (130-400); RED BLOOD COUNT 4.54 x10^6/uL (3.82-5.3)
[2019-11-19] MEDS ORDERED: CEFTRIAXONE PMX 1GM/50ML 50 ML IVPB ONE (17:00)
[2019-11-19] MEDS ORDERED: AZITHROMYCIN 500 MG in SODIUM CHLORIDE 0.9% 250 ML IVPB ONE (17:00)
[2019-11-19] MEDS ORDERED: ACETAMINOPHEN 325 MG TABLET PO PRN (17:00)
[2019-11-19] MEDS ORDERED: PROMETHAZINE 25 MG/ML, 1ML IM PRN (17:00)
[2019-11-19] MEDS ORDERED: morphine SULFATE 10 MG/ML, 1ML IVPush PRN (17:00)
[2019-11-19] MEDS ORDERED: ERGOCALCIFEROL 50,000 UNIT CAPSULE PO SCH (17:00)
[2019-11-19] MEDS ORDERED: OXYcodone IR 5MG TABLET PO PRN (17:00)
[2019-11-19] MEDS ORDERED: HEPARIN 5,000 UNITS/ML, 1ML SQ SCH (17:00)
[2019-11-19] MEDS ORDERED: LABETALOL 5MG/ML, 20ML IVPush PRN (17:00)
[2019-11-19] MEDS ORDERED: hydrALAzine 20 MG/ML, 1ML IVPush PRN (17:00)
--- NOTE | 2019-11-19 17:34 | NUR ---
LAB IN DRAWING BLOOD CULTURES AT THIS TIME.
[2019-11-19 17:50] LABS: TROPONIN I 0.022 ng/mL (0.000-0.045)
[2019-11-19] MEDS ORDERED: SODIUM CHLORIDE FLUSH 10ML SYR IVF PRN (18:00)
--- NOTE | 2019-11-19 18:04 | NUR ---
IV PLACED IN PT. PT HAS LEFT FOR CT SCAN. REPORT GIVEN TO TAD PARTIDA FOR 4TH FLOOR.
[2019-11-19] MEDS ORDERED: CEFTRIAXONE PMX 1GM/50ML 50 ML ONE (18:11)
--- NOTE | 2019-11-19 18:16 | NUR ---
PT UNABLE TO RECALL HER HOME MEDS A TTHIS TIME. UNABLE TO COMPLETE MED REC AT THIS TIME. BLOOD CULTURES DRAWN.
[2019-11-19] MEDS: DOXYCYCLINE 100MG TABLET PO SCH (20:19)
[2019-11-19] MEDS: NICOTINE 7 MG/24 HR PATCH.TD24 TD SCH (20:19)
[2019-11-19] MEDS: APIXABAN 5 MG TABLET PO SCH ×2 (20:20→22:37)
[2019-11-19 21:52] LABS: RAPID INFLUENZA A Negative (Negative); RAPID INFLUENZA B Negative (Negative)
[2019-11-19 22:38] VITALS: BP 157/82
[2019-11-19 23:09] LABS: TROPONIN I 0.028 ng/mL (0.000-0.045)
[2019-11-20 02:00] VITALS: BP 105/60
[2019-11-20 05:42] LABS: ALBUMIN 2.6 g/dL (3.4-5.0); ANION GAP 4 mmol/L (5-15); CALCIUM 7.8 mg/dL (8.5-10.1); CHLORIDE 105 mmol/L (98-107)
[2019-11-20 05:50] LABS: ALANINE AMINOTRANSFERASE 15 U/L (12-78); ALKALINE PHOSPHATASE 70 U/L (45-117); BILIRUBIN,TOTAL 0.4 mg/dL (0.2-1.0); CREATININE 0.61 mg/dL (0.55-1.02); TOTAL PROTEIN 6.3 g/dL (6.4-8.2); TROPONIN I < 0.015 ng/mL (0.000-0.045)
[2019-11-20 05:56] LABS: BASOPHILS % (AUTO) 0 % (0-1); EOSINOPHILS # (AUTO) 0.06 x10^3/uL (0-0.4); EOSINOPHILS % (AUTO) 1 % (1-7); LYMPHOCYTES # (AUTO) 0.85 x10^3/uL (1-3.4); LYMPHOCYTES % (AUTO) 9 % (22-44); MD NO; MEAN CORPUSCULAR HEMOGLOBIN 30.1 pg (27.0-34.8); MEAN CORPUSCULAR HGB CONC 33.4 g/dL (32.4-35.8); MEAN CORPUSCULAR VOLUME 90.2 fL (80-100); MEAN PLATELET VOLUME 7.9 fL (7.4-10.4); MONOCYTES # (AUTO) 0.99 x10^3/uL (0.2-0.8); MONOCYTES % (AUTO) 10 % (2-9); NEUTROPHILS # (AUTO) 7.67 x10^3/uL (1.8-6.8); NEUTROPHILS % (AUTO) 80 % (42-75); PLATELET COUNT 268 x10^3/uL (130-400); RED BLOOD COUNT 3.95 x10^6/uL (3.82-5.3); RED CELL DISTRIBUTION WIDTH 13.9 % (9.6-15.2)
[2019-11-20 07:13] VITALS: BP 115/73
[2019-11-20] MEDS ORDERED: POTASSIUM CHLORIDE 20 MEQ TAB.ER.PRT PO ONE (07:30)
[2019-11-20] MEDS: APIXABAN 5 MG TABLET PO SCH ×2 (08:48→20:21)
[2019-11-20] MEDS: FUROSEMIDE 20 MG TABLET PO SCH (08:48)
[2019-11-20] MEDS: CALCIUM CARBONATE 500 MG TABLET PO SCH ×2 (08:48→20:21)
[2019-11-20] MEDS: DOXYCYCLINE 100MG TABLET PO SCH ×2 (08:48→20:21)
[2019-11-20] MEDS: OXYcodone IR 5MG TABLET PO PRN ×2 (08:49→17:19)
[2019-11-20] MEDS: CARVEDILOL 3.125 MG TABLET PO SCH ×2 (08:54→17:16)
[2019-11-20] MEDS ORDERED: FUROSEMIDE 20 MG/2 ML IV SCH (09:00)
[2019-11-20 13:06] VITALS: BP 103/63
[2019-11-20] MEDS: NICOTINE 7 MG/24 HR PATCH.TD24 TD SCH (17:16)
[2019-11-20] MEDS: CEFTRIAXONE PMX 1GM/50ML 50 ML IV SCH (17:16)
[2019-11-20 18:42] VITALS: BP 114/70
[2019-11-21] VITALS (7 sets, daily range): BP systolic 94–134; BP diastolic 56–74
[2019-11-21] MEDS: ALENDRONATE 10 MG TABLET PO SCH (05:27)
[2019-11-21] MEDS: CARVEDILOL 3.125 MG TABLET PO SCH ×2 (05:28→17:18)
[2019-11-21] MEDS: ONDANSETRON 2MG/ML, 2ML IVPush PRN (05:34)
[2019-11-21 07:58] LABS: ANION GAP 4 mmol/L (5-15); CALCIUM 8.2 mg/dL (8.5-10.1); CHLORIDE 104 mmol/L (98-107); CREATININE 0.69 mg/dL (0.55-1.02)
[2019-11-21] MEDS ORDERED: ALBUTEROL SULFATE 2.5 MG/3 ML NPPB PRN (08:00)
[2019-11-21] MEDS: FUROSEMIDE 20 MG TABLET PO SCH (08:58)
[2019-11-21] MEDS: DOXYCYCLINE 100MG TABLET PO SCH ×2 (08:58→20:46)
[2019-11-21] MEDS: CALCIUM CARBONATE 500 MG TABLET PO SCH ×2 (08:58→20:46)
[2019-11-21] MEDS: APIXABAN 5 MG TABLET PO SCH ×2 (08:58→20:46)
[2019-11-21] MEDS: OXYcodone IR 5MG TABLET PO PRN ×2 (08:59→17:26)
[2019-11-21] MEDS: ALBUTEROL/IPRATROPIUM 2.5MG/0.5MG, 3 ML NPPB SCH ×3 (09:35→20:00)
[2019-11-21] MEDS: CEFTRIAXONE PMX 1GM/50ML 50 ML IV SCH (17:18)
[2019-11-21] MEDS: NICOTINE 7 MG/24 HR PATCH.TD24 TD SCH (17:18)
[2019-11-22 01:20] VITALS: BP 114/71
[2019-11-22 04:42] VITALS: BP 125/74
[2019-11-22] MEDS: CARVEDILOL 3.125 MG TABLET PO SCH ×2 (04:44→17:00)
[2019-11-22] MEDS: ALENDRONATE 10 MG TABLET PO SCH (04:44)
[2019-11-22] MEDS: ALBUTEROL/IPRATROPIUM 2.5MG/0.5MG, 3 ML NPPB SCH ×4 (05:06→18:41)
[2019-11-22] MEDS: OXYcodone IR 5MG TABLET PO PRN ×3 (05:56→20:23)
[2019-11-22 07:12] VITALS: BP 102/64
[2019-11-22] MEDS: DOXYCYCLINE 100MG TABLET PO SCH ×2 (07:59→20:17)
[2019-11-22] MEDS: SODIUM CHLORIDE 0.9% 1,000 ML IV SCH (07:59)
[2019-11-22] MEDS: APIXABAN 5 MG TABLET PO SCH ×2 (07:59→20:17)
[2019-11-22] MEDS: CALCIUM CARBONATE 500 MG TABLET PO SCH ×2 (07:59→20:17)
[2019-11-22 13:21] VITALS: BP 111/75
[2019-11-22] MEDS: CEFTRIAXONE PMX 1GM/50ML 50 ML IV SCH (16:07)
[2019-11-22] MEDS: ACETAMINOPHEN 325 MG TABLET PO PRN (16:07)
[2019-11-22] MEDS: NICOTINE 7 MG/24 HR PATCH.TD24 TD SCH (16:07)
[2019-11-22 17:00] VITALS: BP 109/64
[2019-11-22 19:25] VITALS: BP 110/49
[2019-11-23 01:32] VITALS: BP 119/59
[2019-11-23] MEDS: ALENDRONATE 10 MG TABLET PO SCH (05:09)
[2019-11-23] MEDS: CARVEDILOL 3.125 MG TABLET PO SCH ×2 (05:09→17:21)
[2019-11-23] MEDS: SODIUM CHLORIDE 0.9% 1,000 ML IV SCH ×2 (05:10→08:56)
[2019-11-23] MEDS: ALBUTEROL/IPRATROPIUM 2.5MG/0.5MG, 3 ML NPPB SCH ×4 (07:00→18:32)
[2019-11-23 07:08] VITALS: BP 121/73
[2019-11-23] MEDS: DOXYCYCLINE 100MG TABLET PO SCH ×2 (08:55→20:42)
[2019-11-23] MEDS: CALCIUM CARBONATE 500 MG TABLET PO SCH ×2 (08:55→20:42)
[2019-11-23] MEDS: APIXABAN 5 MG TABLET PO SCH ×2 (08:55→20:42)
[2019-11-23 13:34] VITALS: BP 147/74
[2019-11-23] MEDS: OXYcodone IR 5MG TABLET PO PRN (17:20)
[2019-11-23] MEDS: NICOTINE 7 MG/24 HR PATCH.TD24 TD SCH (17:21)
[2019-11-23] MEDS: CEFTRIAXONE PMX 1GM/50ML 50 ML IV SCH (17:25)
[2019-11-23 19:03] VITALS: BP 118/63
[2019-11-23] MEDS: METHOCARBAMOL 750 MG TABLET PO PRN (20:42)
[2019-11-24 01:37] VITALS: BP 118/77
[2019-11-24 04:44] LABS: ANION GAP 2 mmol/L (5-15); CALCIUM 8.9 mg/dL (8.5-10.1); CHLORIDE 100 mmol/L (98-107); CREATININE 0.74 mg/dL (0.55-1.02)
[2019-11-24] MEDS: ALENDRONATE 10 MG TABLET PO SCH (06:32)
[2019-11-24] MEDS: CARVEDILOL 3.125 MG TABLET PO SCH ×2 (06:32→17:18)
[2019-11-24] MEDS: SODIUM CHLORIDE 0.9% 1,000 ML IV SCH (06:35)
[2019-11-24] MEDS: ALBUTEROL/IPRATROPIUM 2.5MG/0.5MG, 3 ML NPPB SCH (07:00)
[2019-11-24 07:19] VITALS: BP 109/62
[2019-11-24] MEDS: CALCIUM CARBONATE 500 MG TABLET PO SCH ×2 (07:56→19:57)
[2019-11-24] MEDS: APIXABAN 5 MG TABLET PO SCH ×2 (07:56→19:57)
[2019-11-24] MEDS: DOXYCYCLINE 100MG TABLET PO SCH ×2 (07:56→19:57)
[2019-11-24] MEDS: ACETAMINOPHEN 325 MG TABLET PO PRN (09:20)
[2019-11-24] MEDS: ONDANSETRON 2MG/ML, 2ML IVPush PRN (09:20)
[2019-11-24 15:23] VITALS: BP 130/63
[2019-11-24 17:17] VITALS: BP 129/69
[2019-11-24] MEDS: NICOTINE 7 MG/24 HR PATCH.TD24 TD SCH (17:18)
[2019-11-24] MEDS: CEFTRIAXONE PMX 1GM/50ML 50 ML IV SCH (17:18)
[2019-11-24 19:00] VITALS: BP 93/55
[2019-11-24] MEDS: METHOCARBAMOL 750 MG TABLET PO PRN (19:57)
[2019-11-25 00:06] VITALS: BP 124/62
[2019-11-25] MEDS: ALENDRONATE 10 MG TABLET PO SCH (05:32)
[2019-11-25] MEDS: CARVEDILOL 3.125 MG TABLET PO SCH (05:32)
[2019-11-25 06:09] VITALS: BP 115/68
[2019-11-25] MEDS: CALCIUM CARBONATE 500 MG TABLET PO SCH (08:32)
[2019-11-25] MEDS: APIXABAN 5 MG TABLET PO SCH (08:32)
[2019-11-25] MEDS: DOXYCYCLINE 100MG TABLET PO SCH (08:32)
== END 2019-11-25 11:07 | disposition home health service (06) | DRG 871 ==
LOC: ED 16:45 → EDIP 16:55 → ED 17:06 → 4WST 18:57
PROVIDERS: ADMIT Internal Medicine; ATTEND Internal Medicine Infectious Disease
DX: A41.9 Sepsis, unspecified organism (principal); J96.21 Acute and chronic respiratory failure with hypoxia; J18.1 Lobar pneumonia, unspecified organism; I21.A1 Myocardial infarction type 2; J44.0 Chronic obstructive pulmonary disease with (acute) lower respiratory infection; Z91.018 Allergy to other foods; E27.8 Other specified disorders of adrenal gland; E87.6 Hypokalemia; F17.210 Nicotine dependence, cigarettes, uncomplicated; F41.9 Anxiety disorder, unspecified; I10 Essential (primary) hypertension; Z86.711 Personal history of pulmonary embolism; R65.20 Severe sepsis without septic shock
CPT/HCPCS: 36415; 36600; 71045; 74177; 80048; 80053; 82803; 83605; 83735; 83880; 84145; 84443; 84484; 85025; 87040; 87400; 93005; 93306; 94640; 96374; 99285; G0378; J0696; J2405; J7030

== ENCOUNTER 2020-06-12 04:29 | Emergency (ER) | payer MEDICARE, OTHER ==
[~2020-06-12] VITALS: Ht 165.1 cm; Wt 68.0 kg
--- NOTE | 2020-06-12 05:00 | NUR ---
RA VS: 95%, 29RR, 101HR.
--- NOTE | 2020-06-12 05:07 | NUR ---
PT QUESTIONED THIS RN "WHAT ARE YOU GUYS EVEN DOING?" PT UPDATED ON POC. PT STATES "WELL HOW LONG AM I GOING TO BE HERE?" PT REMINDED ABOUT THE TESTS THAT NEED TO BE RUN AND THAT THE TIME ELAPSED WHILE SHE'S BEEN IN THE ER IS APPROX 30 MINUTES. PT THEN CALLED THIS RN A B IN RESPONSE.
--- NOTE | 2020-06-12 05:37 | NUR ---
PER ELECTRIC CELL TENDER: PT QUESTIONING HOW LONG SHE'LL BE IN THE ER. THIS RN ADRESSED WITH PT THAT SHE HAS A RIGHT TO LEAVE WHENEVER SHE WANTS BUT IT WOULD BE AMA.
[2020-06-12 05:52] LABS: BASOPHILS % (AUTO) 1 % (0-1); EOSINOPHILS % (AUTO) 2 % (1-7); LYMPHOCYTES % (AUTO) 21 % (22-44); MEAN CORPUSCULAR HGB CONC 32.1 g/dL (32.4-35.8); MEAN PLATELET VOLUME 7.9 fL (7.4-10.4); MONOCYTES % (AUTO) 5 % (2-9); NEUTROPHILS % (AUTO) 72 % (42-75); PLATELET COUNT 244 x10^3/uL (130-400); RED BLOOD COUNT 4.46 x10^6/uL (3.82-5.3); RED CELL DISTRIBUTION WIDTH 13.4 % (9.6-15.2)
[2020-06-12 06:11] LABS: MD NO
[2020-06-12 06:13] LABS: ALBUMIN 3.4 g/dL (3.4-5.0); ANION GAP 6 mmol/L (5-15); CALCIUM 8.7 mg/dL (8.5-10.1); CHLORIDE 110 mmol/L (98-107); CREATININE 0.82 mg/dL (0.55-1.02)
[2020-06-12 06:15] LABS: TROPONIN I < 0.015 ng/mL (0.000-0.045)
--- NOTE | 2020-06-12 06:30 | NUR ---
ERP TO BEDSIDE. PT INTERACTING APPROPRIATELY.
--- NOTE | 2020-06-12 06:39 | NUR ---
pt ambulatory to bathroom with walker and steady gait. uses walker at baseline.
--- NOTE | 2020-06-12 07:12 | NUR ---
SBAR REC'D FROM JAQUAN VELÁZQUEZ AND PT CARE ASSUMED.
[2020-06-12 08:35] VITALS: BP 143/50
--- NOTE | 2020-06-12 08:37 | NUR ---
PT CONTACTED HER ROOMMATE, CONNIE. HE WILL COME TO PICK HER UP AND WILL BRING HER HOME OXYGEN. PT RPTS BREATHING IS EASIER.
--- NOTE | 2020-06-12 08:47 | NUR ---
REDD RPT TO JAQUAN BRYANT
== END 2020-06-12 09:31 | disposition home or self-care (01) ==
LOC: ED 06:03
DX: J44.1 Chronic obstructive pulmonary disease with (acute) exacerbation (principal); R06.00 Dyspnea, unspecified; R06.02 Shortness of breath
CPT/HCPCS: 36415; 71045; 80048; 82040; 84484; 85025; 93005; 99285

== ENCOUNTER 2020-09-24 12:22 | Emergency (ER) | payer MEDICARE, OTHER ==
[~2020-09-24] VITALS: Ht 167.6 cm; Wt 72.5 kg
[~2020-09-24 12:22] MED LIST changes: +AMLO-211 PO; -AMLO10TA8 PO
--- NOTE | 2020-09-24 12:34 | NUR ---
ROOM MATECONNIE, , OR CELL . HE IS AVAILABLE FOR RIDE IF NEEDED.
[2020-09-24] MEDS ORDERED: SODIUM CHLORIDE FLUSH 10ML SYR IVF ONE (13:30)
--- NOTE | 2020-09-24 13:31 | NUR ---
DISCUSSED POC WITH PT, PT NEEDING FREQUENT REMINDING, THIS RN EXPLAINED PURPOSE OF PIV FOR TEST AND REPEATED SEVERAL TIMES WHY/WHAT TEST IS NEEDED PIV INITIATED. PT TO ALL MONTIORS.
[2020-09-24 13:47] LABS: BASOPHILS % (AUTO) 1 % (0-1); EOSINOPHILS % (AUTO) 3 % (1-7); LYMPHOCYTES % (AUTO) 21 % (22-44); MEAN CORPUSCULAR HEMOGLOBIN 30.6 pg (27.0-34.8); MEAN CORPUSCULAR HGB CONC 33.1 g/dL (32.4-35.8); MEAN PLATELET VOLUME 7.5 fL (7.4-10.4); MONOCYTES % (AUTO) 10 % (2-9); NEUTROPHILS % (AUTO) 66 % (42-75); PLATELET COUNT 251 x10^3/uL (130-400); RED BLOOD COUNT 3.85 x10^6/uL (3.82-5.3); RED CELL DISTRIBUTION WIDTH 12.8 % (9.6-15.2)
[2020-09-24 13:48] LABS: MD NO
[2020-09-24 13:58] LABS: ALANINE AMINOTRANSFERASE 15 U/L (12-78); ALBUMIN 3.6 g/dL (3.4-5.0); ANION GAP 3 mmol/L (5-15); CALCIUM 8.8 mg/dL (8.5-10.1); CHLORIDE 103 mmol/L (98-107); CREATININE 0.74 mg/dL (0.55-1.02)
[2020-09-24 14:02] LABS: ALKALINE PHOSPHATASE 55 U/L (45-117); BILIRUBIN,TOTAL 0.4 mg/dL (0.2-1.0); TOTAL PROTEIN 6.8 g/dL (6.4-8.2); TROPONIN I < 0.015 ng/mL (0.000-0.045)
--- NOTE | 2020-09-24 14:25 | NUR ---
PT TO CT AT THIS TIME
[2020-09-24] MEDS ORDERED: OMNIPAQUE 350 MG/ML, 100ML BOTTLE ONE (14:48)
[2020-09-24] MEDS ORDERED: LORazepam 2 MG/ML, 1ML IV STA (14:57)
[2020-09-24] MEDS ORDERED: LORazepam 2 MG/ML, 1ML ONE (14:58)
[2020-09-24 15:03] VITALS: BP 173/66
--- NOTE | 2020-09-24 15:05 | NUR ---
PT BACK FROM IMAGING, ERMD IN TO UPDATE PT ON POC. PT VERY ANXIOUS, REPEATING HERSELF, ASKING SAME QUESTIONS OVER. PT ASSISTED TO BSC, REFUSING TO USE HAT, EDUCATED ON NEED FOR UA SAMPLE, PT REQUIRES FREQUENT REMINDING AND EDUCATION
--- NOTE | 2020-09-24 15:12 | NUR ---
Assisted pt to bedside commode. Administered Ativan. Pt calm, conversing with this RN.
--- NOTE | 2020-09-24 15:46 | NUR ---
UA collected and tubed to lab.
[2020-09-24 16:02] LABS: MICROSCOPIC NOT IND
== END 2020-09-24 17:55 | disposition home or self-care (01) ==
LOC: ED 17:25
DX: K29.00 Acute gastritis without bleeding (principal); R10.13 Epigastric pain; R94.31 Abnormal electrocardiogram [ECG] [EKG]; R11.0 Nausea; I10 Essential (primary) hypertension; J44.9 Chronic obstructive pulmonary disease, unspecified
CPT/HCPCS: 36415; 71045; 74177; 80053; 81003; 83690; 84484; 85025; 93005; 96374; 99285; J2060; Q9967

== ENCOUNTER 2020-12-19 17:54 | Emergency (ER) | payer MEDICARE, OTHER ==
[~2020-12-19] VITALS: Ht 167.6 cm; Wt 72.8 kg
[~2020-12-19 17:54] MED LIST changes: -OXYC5TAB3 PO; +OXYC5TAB98 PO
--- NOTE | 2020-12-19 18:30 | NUR ---
PTS ROOMMATE CONNIE [phone] OK TO CALL W/ UPDATES AND CAN PICK PT UP IF DC.
[2020-12-19] MEDS ORDERED: ACETAMINOPHEN 500 MG TABLET ONE (19:00)
[2020-12-19] MEDS ORDERED: OMNIPAQUE 350 MG/ML, 100ML BOTTLE ONE (19:00)
[2020-12-19] MEDS ORDERED: ACETAMINOPHEN 500 MG TABLET PO ONE (19:00)
[2020-12-19 19:15] LABS: BASOPHILS % (AUTO) 1 % (0-1); EOSINOPHILS % (AUTO) 4 % (1-7); LYMPHOCYTES % (AUTO) 23 % (22-44); MEAN CORPUSCULAR HEMOGLOBIN 29.7 pg (27.0-34.8); MEAN CORPUSCULAR HGB CONC 33.7 g/dL (32.4-35.8); MEAN PLATELET VOLUME 7.5 fL (7.4-10.4); MONOCYTES % (AUTO) 11 % (2-9); NEUTROPHILS % (AUTO) 62 % (42-75); PLATELET COUNT 256 x10^3/uL (130-400); RED BLOOD COUNT 3.76 x10^6/uL (3.82-5.3); RED CELL DISTRIBUTION WIDTH 12.9 % (9.6-15.2)
[2020-12-19 19:16] LABS: MD NO
[2020-12-19 19:22] LABS: ALANINE AMINOTRANSFERASE 15 U/L (12-78); ALBUMIN 3.5 g/dL (3.4-5.0); ANION GAP 5 mmol/L (5-15); CALCIUM 8.5 mg/dL (8.5-10.1); CHLORIDE 105 mmol/L (98-107); CREATININE 1.01 mg/dL (0.55-1.02); INTERNATIONAL NORMALIZED RATIO 0.96 (0.93-1.1); PROTHROMBIN TIME 10.3 Seconds (9.6-11.5)
[2020-12-19 19:24] LABS: ALKALINE PHOSPHATASE 60 U/L (45-117); BILIRUBIN,TOTAL 0.3 mg/dL (0.2-1.0); TOTAL PROTEIN 6.9 g/dL (6.4-8.2)
[2020-12-19 22:13] VITALS: BP 149/88
--- NOTE | 2020-12-19 22:14 | NUR ---
PT DISCHARGED PER PROVIDER ORDER, IV REMOVED WITH PT PUSHED TO DISCHARGE DESK WITH PT FRIEND. PT HAD DISCHARGE PAPERWORK IN HAND.
== END 2020-12-19 22:15 | disposition home or self-care (01) ==
LOC: ED 21:01
DX: K64.4 Residual hemorrhoidal skin tags (principal); R10.84 Generalized abdominal pain; I35.0 Nonrheumatic aortic (valve) stenosis; K92.1 Melena; I10 Essential (primary) hypertension; J44.9 Chronic obstructive pulmonary disease, unspecified; F17.210 Nicotine dependence, cigarettes, uncomplicated
CPT/HCPCS: 36415; 74177; 80053; 83605; 85025; 85610; 99285; 99406; Q9967

== ENCOUNTER 2021-02-15 11:15 | Emergency (ER) | payer MEDICARE, OTHER ==
[~2021-02-15] VITALS: Ht 167.6 cm; Wt 71.9 kg
[~2021-02-15 11:15] MED LIST changes: +CEFD300C37 PO; +DOXY100T23 PO; +FURO20TA3 PO; +GABA-826 PO; +LEVO25TA4 PO; +LIDO700A20 TD; +LOSA50TA2 PO; +MELO7.5T31 PO; +METH-639 PO; +PRED5TAB PO; +TRAM50TA2 PO
--- NOTE | 2021-02-15 11:40 | NUR ---
PT BROUGHT BACK TO ROOM FROM TRIAGE VIA WHEELCHAIR. PT CO ABDOMINAL DISTENSION AND EPIGASTRIC PAIN X 4 DAYS. PT DENIES ANY N/V/D. LAST NORMAL BM YESTERDAY MORNING. PT DENIES ANY SOB, CP OR FEVER.
--- NOTE | 2021-02-15 12:26 | NUR ---
PT TO X RAY
[2021-02-15] MEDS ORDERED: SODIUM CHLORIDE FLUSH 10ML SYR IVF ONE (12:30)
[2021-02-15 13:01] LABS: BASOPHILS % (AUTO) 0 % (0-1); EOSINOPHILS % (AUTO) 4 % (1-7); LYMPHOCYTES % (AUTO) 17 % (22-44); MEAN CORPUSCULAR HEMOGLOBIN 30.1 pg (27.0-34.8); MEAN CORPUSCULAR HGB CONC 33.3 g/dL (32.4-35.8); MEAN PLATELET VOLUME 7.4 fL (7.4-10.4); MONOCYTES % (AUTO) 13 % (2-9); NEUTROPHILS % (AUTO) 67 % (42-75); PLATELET COUNT 340 x10^3/uL (130-400); RED BLOOD COUNT 3.49 x10^6/uL (3.82-5.3); RED CELL DISTRIBUTION WIDTH 14.5 % (9.6-15.2)
[2021-02-15 13:11] LABS: ALANINE AMINOTRANSFERASE 18 U/L (12-78); ALBUMIN 3.4 g/dL (3.4-5.0); ANION GAP 3 mmol/L (5-15); CALCIUM 8.4 mg/dL (8.5-10.1); CHLORIDE 104 mmol/L (98-107); CREATININE 0.97 mg/dL (0.55-1.02)
[2021-02-15 13:13] LABS: ALKALINE PHOSPHATASE 61 U/L (45-117); BILIRUBIN,TOTAL 0.2 mg/dL (0.2-1.0); TOTAL PROTEIN 6.6 g/dL (6.4-8.2)
--- NOTE | 2021-02-15 13:15 | NUR ---
PT UP TO COMMODE, UNABLE TO URINATE FOR UA. PT AGREED FOR STRAIGHT CATH FOR URINE SAMPLE. PT TOLERATED CATH WELL. UA SENT TO LAB.
[2021-02-15 13:28] LABS: MICROSCOPIC NOT IND
--- NOTE | 2021-02-15 14:03 | NUR ---
PT TO CT
[2021-02-15 14:35] VITALS: BP 140/48
[2021-02-15] MEDS ORDERED: OMNIPAQUE 350 MG/ML, 100ML BOTTLE ONE (14:35)
--- NOTE | 2021-02-15 15:00 | NUR ---
PT UP TO COMMODE.
--- NOTE | 2021-02-15 16:00 | NUR ---
DISCHARGE INSTRUCTIONS REVIEWED WITH PT. ALL QUESTIONS ANSWERED AT THIS TIME.
== END 2021-02-15 16:02 | disposition home or self-care (01) ==
LOC: ED 11:46
DX: K43.9 Ventral hernia without obstruction or gangrene (principal); I11.0 Hypertensive heart disease with heart failure; I50.9 Heart failure, unspecified; J44.9 Chronic obstructive pulmonary disease, unspecified; F17.200 Nicotine dependence, unspecified, uncomplicated
CPT/HCPCS: 36415; 74022; 74177; 80053; 81003; 83605; 83690; 85025; 99285; Q9967

== ENCOUNTER 2021-02-20 05:38 | Emergency (ER) | payer MEDICARE, OTHER ==
[~2021-02-20] VITALS: Ht 162.6 cm; Wt 69.0 kg
--- NOTE | 2021-02-20 05:46 | NUR ---
INITIAL PT CONTACT. PT PRESENTS TO ED C/O RECTAL BLEEDING X1 DAY. PT RECENTLY DX WITH HEMMORRHOIDS "ONE OF THOSE LITTLE GUYS MUST'VE BURST." PT REPORTS "SIGNIFICANT ANXIETY COMING TO THE ED FOR EVAL." PT SITTING UPRIGHT ON GURNEY, ANXIOUS, VSS. PT FRIEND AT BEDSIDE. CALL LIGHT AND PERSONAL BELONGINGS WITHIN REACH. CONTINUOUS MONITORING IN PLACE.
[2021-02-20 06:13] VITALS: BP 147/82
--- NOTE | 2021-02-20 06:13 | NUR ---
Patient given discharge instructions and they have confirmed that they understand the instructions. Patient ambulatory with steady gait to d/c via wheelchair
== END 2021-02-20 06:15 | disposition home or self-care (01) ==
LOC: ED 06:09
DX: K64.8 Other hemorrhoids (principal); I11.0 Hypertensive heart disease with heart failure; I50.9 Heart failure, unspecified; J44.9 Chronic obstructive pulmonary disease, unspecified; F17.200 Nicotine dependence, unspecified, uncomplicated
CPT/HCPCS: 99281

== ENCOUNTER 2021-03-09 07:48 | Emergency (ER) | payer MEDICARE, OTHER ==
[~2021-03-09] VITALS: Ht 167.6 cm; Wt 68.4 kg
[2021-03-09] MEDS ORDERED: ALBUTEROL/IPRATROPIUM 2.5MG/0.5MG, 3 ML ONE (08:23)
[2021-03-09] MEDS ORDERED: ALBUTEROL/IPRATROPIUM 2.5MG/0.5MG, 3 ML NPPB ONE (08:30)
[2021-03-09 08:47] LABS: BASOPHILS % (AUTO) 0 % (0-1); EOSINOPHILS % (AUTO) 1 % (1-7); LYMPHOCYTES % (AUTO) 6 % (22-44); MEAN CORPUSCULAR HEMOGLOBIN 29.5 pg (27.0-34.8); MEAN CORPUSCULAR HGB CONC 32.4 g/dL (32.4-35.8); MEAN PLATELET VOLUME 7.9 fL (7.4-10.4); MONOCYTES % (AUTO) 7 % (2-9); NEUTROPHILS % (AUTO) 86 % (42-75); PLATELET COUNT 241 x10^3/uL (130-400); RED BLOOD COUNT 3.62 x10^6/uL (3.82-5.3); RED CELL DISTRIBUTION WIDTH 14.1 % (9.6-15.2)
[2021-03-09 08:57] LABS: ALBUMIN 3.2 g/dL (3.4-5.0); CALCIUM 8.5 mg/dL (8.5-10.1); CHLORIDE 110 mmol/L (98-107)
[2021-03-09 09:02] LABS: ALANINE AMINOTRANSFERASE 11 U/L (12-78); ALKALINE PHOSPHATASE 61 U/L (45-117); BILIRUBIN,TOTAL 0.2 mg/dL (0.2-1.0); CREATININE 0.94 mg/dL (0.55-1.02); TOTAL PROTEIN 6.8 g/dL (6.4-8.2); TROPONIN I < 0.015 ng/mL (0.000-0.045)
[2021-03-09 09:07] LABS: ANION GAP 3 mmol/L (5-15)
--- NOTE | 2021-03-09 10:12 | NUR ---
PATIENT ASSISTED TO BS AND BACK TO [facility], URINE COLLECTED AND SENT TO LAB. PATIENT CONNECTED TO MONITOR, O2 SATURATION DOWN TO 80% ON 2 LPM NC, INCREASED O2 TO 4 LPM NC, O2 SATURATION UP TO 91%.
[2021-03-09 10:17] LABS: MICROSCOPIC NOT IND
--- NOTE | 2021-03-09 10:23 | NUR ---
O2 DECREASED TO 2 LPM NC, PATIENT'S BASELINE, SATURATION CONSISTENT AT 96%.
--- NOTE | 2021-03-09 10:31 | NUR ---
ERMD AT BEDSIDE FOR EVALUATION.
--- NOTE | 2021-03-09 11:00 | NUR ---
CONNIE SANTIZOATE/RIDE HOME PHONE [phone], CELL PHONE [phone].
--- NOTE | 2021-03-09 11:40 | NUR ---
HEARING SPECIALIST AT BEDSIDE.
--- NOTE | 2021-03-09 11:43 | NUR ---
PER STORE ADMINISTRATIVE ASSISTANT, PATIENT'S BASELINE O2 NEEDS ARE 4 LPM, NOT 2 LPM, ONCE MEDICALLY CLEARED OKAY FOR ROOMATE TO COME MEDICAL OFFICE TECHNOLOGY INSTRUCTOR.
--- NOTE | 2021-03-09 12:04 | NUR ---
PATIENT RESTING IN GURNEY, CONNECTED TO MONITORS, VSS, NADN, CALL LIGHT WITHIN REACH. WAITING FOR HIP X-RAY.
--- NOTE | 2021-03-09 12:07 | NUR ---
PATIENT TO IMAGING.
--- NOTE | 2021-03-09 12:48 | NUR ---
BEDSIDE REPORT TO JAQUAN JONES FOR TRANSFER OF PATIENT CARE.
[2021-03-09 13:27] VITALS: BP 132/74
== END 2021-03-09 13:29 | disposition home or self-care (01) ==
LOC: ED 08:18
DX: M25.552 Pain in left hip (principal); R09.81 Nasal congestion; R00.0 Tachycardia, unspecified; R06.02 Shortness of breath; R00.9 Unspecified abnormalities of heart beat; I11.0 Hypertensive heart disease with heart failure; I50.9 Heart failure, unspecified; F17.200 Nicotine dependence, unspecified, uncomplicated
CPT/HCPCS: 36415; 71045; 80053; 81003; 83605; 83880; 84484; 85025; 93005; 94640

== ENCOUNTER 2021-06-03 08:13 | Observation (INO) | payer OTHER ==
[~2021-06-03] VITALS: Ht 167.6 cm; Wt 71.0 kg
[2021-06-04 18:28] VITALS: BP 142/78
== END 2021-06-05 23:59 | disposition still patient (30) ==
LOC: ED 08:29 → ORIP 10:10 → INTOOBSV 10:10 → 3N 12:04
PROVIDERS: ADMIT Internal Medicine; ATTEND Hospitalist
DX: R53.1 Weakness (principal); Z20.822 Contact with and (suspected) exposure to COVID-19; R62.7 Adult failure to thrive; K59.00 Constipation, unspecified; J44.0 Chronic obstructive pulmonary disease with (acute) lower respiratory infection; J18.9 Pneumonia, unspecified organism; I50.32 Chronic diastolic (congestive) heart failure; E03.9 Hypothyroidism, unspecified; M48.54XA Collapsed vertebra, not elsewhere classified, thoracic region, initial encounter for fracture; F17.200 Nicotine dependence, unspecified, uncomplicated; Z86.711 Personal history of pulmonary embolism; Z90.710 Acquired absence of both cervix and uterus; Z79.899 Other long term (current) drug therapy; W18.30XA Fall on same level, unspecified, initial encounter; Y93.89 Activity, other specified; Y92.89 Other specified places as the place of occurrence of the external cause